=== PATIENT | male | born 1955 | race Caucasian/White ===

== ENCOUNTER 2016-10-04 14:41 | Emergency (ER) | payer BC ==
[~2016-10-04] VITALS: Ht 172.7 cm; Wt 81.7 kg
[~2016-10-04 14:41] MED LIST: ALBU1AER9; DLN100 PO; DLN30 PO; LRT5 PO; PRLSR20 PO
[2016-10-04 14:43] VITALS: Ht 172.7 cm; Wt 81.7 kg
[2016-10-04] MEDS ORDERED: SODIUM CHLORIDE 0.9% 1000ML 250 ML IV STA (15:07)
[2016-10-04] MEDS ORDERED: SODIUM CHLORIDE 0.9% 1000ML 1,000 ML IV STA (15:07)
--- NOTE | 2016-10-04 15:12 | EMERGENCY ROOM VISIT NOTE ---
History Report prepared by Lizeth: Rene Claudio Under the Supervision of: Dr. Davy Benoit M.D. First contact with patient: 14:56 Chief Complaint: NECK PAIN Stated Complaint: PAIN IN LEFT SIDE OF NECK History of Present Illness The patient is a 60 year old male who presents to the Emergency Room with complaints of waxing & waning pain on the left side of the neck for the past two days. The pain was worse yesterday and last night than today. The pain is exacerbated when he pushes on his neck. The patient states that the pain is "where the artery is." He was seen at a [facility] urgent care clinic, where he was referred to the ED. The patient notes that he has had chest discomfort for several weeks. He denies visual changes, trouble speaking or swallowing, tooth aches, headaches, fevers, rhinorrhea, shortness of breath, nausea, vomiting, weakness, numbness, pain or swelling of the legs. He has not been sick recently. The patient takes Omeprazole for GERD. He also takes Dilantin for a history of seizures and notes that he has not had a seizure for 12 years. The patient is not a smoker. 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 Source of History: patient, spouse/significant other Onset: two days ago Position: neck Timing: waxes/wanes Modifying Factors (Worsening): other (touch) Associated Symptoms: + chest pain, No SOB, No fevers, No headache, No nausea , No numbness, No vomiting, No weakness Review of Systems See HPI for pertinent positives & negatives. A total of 10 systems reviewed and were otherwise negative. Past Medical & Surgical Medical Problems: (1) GERD (gastroesophageal reflux disease) (2) Seizure disorder Old medical records were reviewed. Nurse's notes were reviewed and I agree with. Family History FH: heart disease FHx: gallbladder disease Hypertension Social History Smoking Status: Never Smoker Alcohol Use: none Occupation Status: employed Current/Historical Medications Scheduled Cyanocobalamin (B12), 1 TAB PO DAILY Folic Acid (Folvite), 1 TAB PO DAILY Omeprazole (Prilosec), 20 MG PO DAILY Phenytoin Sodium Extended (Dilantin), 200 MG PO DAILY Phenytoin Sodium Extended (Dilantin), 250 MG PO HS Allergies Coded Allergies: Morphine (Unverified Allergy, Unknown, IV, RED STREAKS UP ARM, 10/04/16) Physical Exam Vital Signs Date Time Temp Pulse Resp B/P Pulse Ox O2 Delivery O2 Flow Rate FiO2 10/04/16 19:04 36.8 78 18 126/82 98 10/04/16 18:35 78 18 126/82 98 Room Air 10/04/16 15:39 68 10/04/16 14:43 36.8 96 18 145/89 94 Room Air Physical Exam General: Non ill-appearing middle aged male in no acute distress, speaking and swallowing without difficulty. HEENT: Normal cephalic atraumatic. Pupils are equal round and reactive to light. Sclerae anicteric. Extraocular movements are intact. Oropharynx is pink with moist mucous membranes, floor of mouth is soft without evidence of abscess. No swelling of the mouth lips or tongue. Neck: Supple with a midline trachea. No meningeal signs or stiffness, no JVD or bruits. No Stridor. tenderness and swelling in the left anterior neck area in the area of the carotid on the left. No definite mass. No redness or warmth. Chest: Clear to auscultation bilaterally. No wheezes or rhonchi. No increased work of breathing. Heart: regular rate and rhythm. Abdomen: Soft nontender, nondistended without rebound guarding or rigidity. Extremities: No cyanosis clubbing or edema. No calf tenderness or assymetry Spine/Back. Non tender to palpation. No CVA tenderness Skin: Good turgor without rashes. Neurologic exam: Cranial nerves two through 12 are intact. Motor and sensation are intact and symmetrical throughout. Medical Decision & Procedures ER Provider Diagnostic Interpretation: Radiology results as stated below per my review and radiologist interpretation: SINGLE VIEW CHEST CLINICAL HISTORY: Atypical chest pain. FINDINGS: An AP, portable, upright chest radiograph is obtained. No prior studies are available for comparison at the time of dictation. The examination is degraded by portable technique and patient rotation. The cardiomediastinal silhouette is unremarkable. Nonspecific interstitial thickening is noted. The lungs and pleural spaces are clear. No pneumothorax is seen. The bony thorax is grossly intact. IMPRESSION: No acute cardiopulmonary abnormality. Electronically signed by: Jace Madison M.D. 10/04/2016 3:28 PM Dictated Date/Time: 10/04/2016 3:[address] SCAN OF THE NECK WITH IV CONTRAST CLINICAL HISTORY: Left neck pain. Neck mass. COMPARISON STUDY: No priors. TECHNIQUE: Following the IV administration of 115 cc of Optiray 320, CT scan of the soft tissues of the neck was performed from the skull base to the upper chest. Images are reviewed in the axial, sagittal, and coronal planes. IV contrast was administered without complication. CT DOSE: 423.94 mGy.cm FINDINGS: Pharynx: The nasopharynx, oropharynx, and laryngeal pharynx are normal in appearance. The pharyngeal airway is widely patent. There is no evidence of mass lesion. The vocal cords are symmetric. The parapharyngeal fat is well maintained. The prevertebral/retropharyngeal soft tissues are within normal limits. The epiglottis is normal. Lymphadenopathy: No cervical lymphadenopathy is seen Thyroid: Normal in size and attenuation. Salivary glands: The parotid and submandibular glands are within normal limits. Brain parenchyma: The visualized brain parenchyma at the skull base is normal in appearance. Vascular structures: The internal carotid arteries and jugular veins are widely patent bilaterally. The cutaneous marker at the site of interest is located over the left carotid bulb. There is mild intimal thickening seen within the distal left common carotid artery and involving the proximal left internal carotid artery. There is mild haziness in the surrounding fat. Similar but milder findings are noted in the right carotid bulb. Skeletal structures: Imaged portions of the calvarium at the skull base are within normal limits. The cervical spine appears intact. Mild multilevel cervical spondylosis is observed. Sinuses and mastoids: Findings suggest previous paranasal sinus surgery. Mild mucosal thickening is seen within the maxillary antra and the ethmoid sinuses. The mastoid air cells are well pneumatized. Lung apices: Visualized apical lung parenchyma is clear. IMPRESSION: 1. The cutaneous marker at the site of interest overlies the left carotid bulb. There is mild intimal thickening seen within the left carotid vessels at this level with mild haziness in the surrounding fat. The appearance is nonspecific but suggest a mild arteritis. Clinical correlation will be required. 2. Similar but milder findings are noted in the region of the right carotid bulb. 3. The carotid vessels are widely patent. 4. There is no mass, fluid collection, or cervical lymphadenopathy identified. Findings were discussed with Dr. Ramos in the emergency department at the time of interpretation. Electronically signed by: Jace Madison M.D. 10/04/2016 5:56 PM Dictated Date/Time: 10/04/2016 5:40 PM Laboratory Results 10/04/16 16:00 Red Blood Count 4.60, Mean Corpuscular Volume 89.3, Mean Corpuscular Hemoglobin 32.0, Mean Corpuscular Hemoglobin Concent 35.8, Mean Platelet Volume 9.3, Neutrophils (%) (Auto) 61.3, Lymphocytes (%) (Auto) 25.3, Monocytes (%) (Auto) 9.7, Eosinophils (%) (Auto) 2.9, Basophils (%) (Auto) 0.5, Neutrophils # (Auto) 3.99, Lymphocytes # (Auto) 1.65, Monocytes # (Auto) 0.63, Eosinophils # (Auto) 0.19, Basophils # (Auto) 0.03 10/04/16 16:00 Test 10/04/16 16:00 10/04/16 16:05 White Blood Count 6.51 K/uL (4.8-10.8) Red Blood Count 4.60 M/uL (4.7-6.1) Hemoglobin 14.7 g/dL (14.0-18.0) Hematocrit 41.1 % (42-52) Mean Corpuscular Volume 89.3 fL (80-100) Mean Corpuscular Hemoglobin 32.0 pg (25-34) Mean Corpuscular Hemoglobin Concent 35.8 g/dl (32-36) Platelet Count 152 K/uL (130-400) Mean Platelet Volume 9.3 fL (7.4-10.4) Neutrophils (%) (Auto) 61.3 % Lymphocytes (%) (Auto) 25.3 % Monocytes (%) (Auto) 9.7 % Eosinophils (%) (Auto) 2.9 % Basophils (%) (Auto) 0.5 % Neutrophils # (Auto) 3.99 K/uL (1.4-6.5) Lymphocytes # (Auto) 1.65 K/uL (1.2-3.4) Monocytes # (Auto) 0.63 K/uL (0.11-0.59) Eosinophils # (Auto) 0.19 K/uL (0-0.5) Basophils # (Auto) 0.03 K/uL (0-0.2) RDW Standard Deviation 43.4 fL (36.4-46.3) RDW Coefficient of Variation 13.2 % (11.5-14.5) Immature Granulocyte % (Auto) 0.3 % Immature Granulocyte # (Auto) 0.02 K/uL (0.00-0.02) Erythrocyte Sedimentation Rate 2 mm/hr (0-14) Anion Gap 10.0 mmol/L (3-11) Est Creatinine Clear Calc Drug Dose 84.3 ml/min Estimated GFR () 107.0 Estimated GFR (Non- 92.3 BUN/Creatinine Ratio 21.7 (10-20) Calcium Level 8.2 mg/dl (8.5-10.1) Total Bilirubin 0.1 mg/dl (0.2-1) Direct Bilirubin < 0.1 mg/dl (0-0.2) Aspartate Amino Transf (AST/SGOT) 15 U/L (15-37) Alanine Aminotransferase (ALT/SGPT) 24 U/L (12-78) Alkaline Phosphatase 121 U/L (45-117) C-Reactive Protein < 0.29 mg/dl (0-0.29) Total Protein 6.8 gm/dl (6.4-8.2) Albumin 3.6 gm/dl (3.4-5.0) Lipase 83 U/L (73-393) Bedside Troponin I 0.000 ng/ml (0-0.045) Laboratory studies as stated above per my review. Medications Administered Medications (Trade) Dose Ordered Sig/Wade Route Start Time Stop Time Status Last Admin Dose Admin Sodium Chloride 250 ml @ 999 mls/hr Q16M STAT IV 10/04/16 15:07 10/04/16 15:22 DC 10/04/16 16:07 999 MLS/HR Sodium Chloride (Nss 1000ml) 1,000 ml @ 100 mls/hr Q10H STAT IV 10/04/16 15:07 10/04/16 19:20 DC 10/04/16 16:08 100 MLS/HR ECG Indication: other (left neck pain) Rate (beats per minute): 65 Rhythm: normal sinus Findings: RBBB, no acute ischemic change, no ectopy Comparison ECG Date: no prior available ED Course 1500: Past medical records reviewed. The patient was evaluated in room B7, and a complete history and physical examination were performed. 1507: NSS 1000 ml @ 100 mls/hr, NSS 250 ml @ 999 mls/hr. 1625: The patient is comfortable. He will go to CT scan. 181: Spoke with Dr. Calvo, Vascular Surgeon. He recommended follow up with Rheumatology. 183: spoke with the advertising production manager Beauty Director, who does not believe that the patient has vasculitis as his sed rate is normal. 1850: Reassessed the patient. Discussed the findings with him. He verbalized understanding and agreement of the treatment plan. The patient is ready for discharge. Medical Decision Differential diagnosis includes lymphadenopathy, infection, vascular pathology, malignancy. This patient comes in as described above. He had left anterior neck pain. It' s the area chronic near the carotid. He has a normal neurologic exam and has no other symptoms. He's had no injury. There is no respiratory symptoms. He is no evidence of airway compromise. No trouble speaking or swallowing. No chest pain or shortness of breath. IV access established and multiple blood testing was obtained. He has no white count or fever to suggest infection. He has negative inflammatory markers including a normal sedimentation rate and CRP. He has no electrolyte and metabolic abnormality. He has nothing to suggest an acute coronary syndrome or arrhythmia. I did a CT of his neck there is no acute abnormality seen with exception of questionable nonspecific changes around the left carotid. It could represent a mild arteritis according to the radiologist who I talked to. I did talk to Dr. Calvo, the vascular surgeon on- call, and he did not feel is any other acute treatment needed at this point. I also talked the value stream manager who felt that this was unlikely arteritis given the fact that the sedimentation rate was normal. The patient looks well. I will have him use anti-inflammatories. I encouraged close follow-up with his doctor Thursday for recheck or return to the week ER over the weekend if: Increasing pain, swelling, redness, warmth, numbness, weakness, chest pain, shortness of breath, any new problems or concerns. The patient and his , who I talked to at length as well, were both happy with plan and he was discharged to home. Consults Time Called: 1809 Consulting Physician: Dr. Calvo, Vascular Surgeon. Returned Call: [phone]: Spoke with Dr. Calvo, Vascular Surgeon. He recommended follow up with Rheumatology. Additional Consults: Time Called: 1819 Consulted Physician: Beauty Director Returned Call: [phone] Additional Comments: 1829: spoke with the advertising production manager Beauty Director, who does not believe that the patient has vasculitis as his sed rate is normal. Impression Primary Impression: Carotidynia Additional Impression: Neck pain, acute Scribe Attestation The scribe's documentation has been prepared under my direction and personally reviewed by me in its entirety. I confirm that the note above accurately reflects all work, treatment, procedures, and medical decision making performed by me. Departure Information Dispostion Home / Self-Care Referrals Howie Hendricks D.O. (PCP) Forms HOME CARE DOCUMENTATION FORM, IMPORTANT VISIT INFORMATION, WORK / SCHOOL INSTRUCTIONS Patient Instructions My [facility] Additional Instructions Rest. Drink plenty of fluids. For pain, Use ibuprofen 400 mg every 6 hours, take with food Return if: Increasing pain, fever or chills, worsening symptoms, numbness or weakness, any new problems or concerns. Problem Qualifiers
[2016-10-04] MEDS ORDERED: FOLI1TAB7 PO (15:14)
[2016-10-04] MEDS ORDERED: PHEN-310 PO ×2 (15:14→15:18)
[2016-10-04] MEDS ORDERED: CYAN100073 PO (15:14)
[2016-10-04] MEDS ORDERED: OMEP20CA59 PO (15:14)
[2016-10-04] MEDS ORDERED: OPTIRAY 320 IV PRN (15:15)
--- NOTE | 2016-10-04 15:29 | DIAGNOSTIC IMAGING REPORT ---
SINGLE VIEW CHEST CLINICAL HISTORY: Atypical chest pain. FINDINGS: An AP, portable, upright chest radiograph is obtained. No prior studies are available for comparison at the time of dictation. The examination is degraded by portable technique and patient rotation. The cardiomediastinal silhouette is unremarkable. Nonspecific interstitial thickening is noted. The lungs and pleural spaces are clear. No pneumothorax is seen. The bony thorax is grossly intact. IMPRESSION: No acute cardiopulmonary abnormality. Electronically signed by: Jace Madison M.D. 10/04/2016 3:28 PM Dictated Date/Time: 10/04/2016 3:27 PM
[2016-10-04 16:06] LABS: BASO % 0.5 %; BASO ABS # 0.03 K/uL (0-0.2); COMPLETE YES; EOS % 2.9 %; HEMATOCRIT 41.1 % (42-52); IG% 0.3 %; LYMPH % 25.3 %; LYMPH ABS # 1.65 K/uL (1.2-3.4); MEAN CELL VOLUME 89.3 fL (80-100); MEAN CORPUSCULAR HGB CONC 35.8 g/dl (32-36); MEAN PLATELET VOLUME 9.3 fL (7.4-10.4); MONO % 9.7 %; NEUT % 61.3 %; PLATELET COUNT 152 K/uL (130-400); WHITE BLOOD COUNT 6.51 K/uL (4.8-10.8)
[2016-10-04 16:23] LABS: ALT/SGPT 24 U/L (12-78); BLOOD UREA NITROGEN 19 mg/dl (7-18); BUN/CREATININE RATIO 21.7 (10-20); CALCIUM 8.2 mg/dl (8.5-10.1); CARBON DIOXIDE 25 mmol/L (21-32); CHLORIDE 108 mmol/L (98-107); CREATININE 0.89 mg/dl (0.60-1.40); GLUCOSE 98 mg/dl (70-99); POTASSIUM 3.6 mmol/L (3.5-5.1); SODIUM 143 mmol/L (136-145)
[2016-10-04 16:26] LABS: ALKALINE PHOSPHATASE 121 U/L (45-117); AST/SGOT 15 U/L (15-37)
--- NOTE | 2016-10-04 17:57 | DIAGNOSTIC IMAGING REPORT ---
CT SCAN OF THE NECK WITH IV CONTRAST CLINICAL HISTORY: Left neck pain. Neck mass. COMPARISON STUDY: No priors. TECHNIQUE: Following the IV administration of 115 cc of Optiray 320, CT scan of the soft tissues of the neck was performed from the skull base to the upper chest. Images are reviewed in the axial, sagittal, and coronal planes. IV contrast was administered without complication. CT DOSE: 423.94 mGy.cm FINDINGS: Pharynx: The nasopharynx, oropharynx, and laryngeal pharynx are normal in appearance. The pharyngeal airway is widely patent. There is no evidence of mass lesion. The vocal cords are symmetric. The parapharyngeal fat is well maintained. The prevertebral/retropharyngeal soft tissues are within normal limits. The epiglottis is normal. Lymphadenopathy: No cervical lymphadenopathy is seen Thyroid: Normal in size and attenuation. Salivary glands: The parotid and submandibular glands are within normal limits. Brain parenchyma: The visualized brain parenchyma at the skull base is normal in appearance. Vascular structures: The internal carotid arteries and jugular veins are widely patent bilaterally. The cutaneous marker at the site of interest is located over the left carotid bulb. There is mild intimal thickening seen within the distal left common carotid artery and involving the proximal left internal carotid artery. There is mild haziness in the surrounding fat. Similar but milder findings are noted in the right carotid bulb. Skeletal structures: Imaged portions of the calvarium at the skull base are within normal limits. The cervical spine appears intact. Mild multilevel cervical spondylosis is observed. Sinuses and mastoids: Findings suggest previous paranasal sinus surgery. Mild mucosal thickening is seen within the maxillary antra and the ethmoid sinuses. The mastoid air cells are well pneumatized. Lung apices: Visualized apical lung parenchyma is clear. IMPRESSION: 1. The cutaneous marker at the site of interest overlies the left carotid bulb. There is mild intimal thickening seen within the left carotid vessels at this level with mild haziness in the surrounding fat. The appearance is nonspecific but suggest a mild arteritis. Clinical correlation will be required. 2. Similar but milder findings are noted in the region of the right carotid bulb. 3. The carotid vessels are widely patent. 4. There is no mass, fluid collection, or cervical lymphadenopathy identified. Findings were discussed with Dr. Ramos in the emergency department at the time of interpretation. Electronically signed by: Jace Madison M.D. 10/04/2016 5:56 PM Dictated Date/Time: 10/04/2016 5:40 PM
[2016-10-04 18:11] LABS: C-REACTIVE PROTEIN < 0.29 mg/dl (0-0.29)
[2016-10-04 19:04] VITALS: BP 126/82; PULSE 78; TEMP 36.8; O2SAT 98
[2016-12-30] MEDS ORDERED: BENZ1CAP90 PO (12:36)
[2016-12-30] MEDS ORDERED: PRED10TA PO (12:36)
[2016-12-30] MEDS ORDERED: LEVO750T23 PO (12:36)
[2016-12-30] MEDS ORDERED: VNTHFA/IN INH (12:36)
== END 2016-10-04 19:05 | disposition home or self-care (01) ==
LOC: C.EDB 14:41
DX: G90.01 Carotid sinus syncope (principal); M54.2 Cervicalgia; K21.9 Gastro-esophageal reflux disease without esophagitis; G40.909 Epilepsy, unspecified, not intractable, without status epilepticus; Z79.899 Other long term (current) drug therapy

== ENCOUNTER 2016-12-24 21:44 | Inpatient (IN) | payer BC ==
[~2016-12-24] VITALS: Ht 172.7 cm; Wt 79.2 kg
[~2016-12-24 21:44] MED LIST changes: -ALBU1AER9; +CYAN100073 PO; -DLN100 PO; -DLN30 PO; +FOLI1TAB7 PO; -LRT5 PO; +OMEP20CA59 PO; +PHEN-310 PO; -PRLSR20 PO
[2016-12-24] MEDS ORDERED: SODIUM CHLORIDE 0.9% 1000ML 1,000 ML IV STA ×2 (21:55)
[2016-12-24] MEDS ORDERED: ACETAMINOPHEN 500 MG TAB PO STA (21:55)
[2016-12-24] MEDS ORDERED: ALBUT/IPRATROP 3MG/0.5MG NEB 3 ML VIAL INH STA (22:03)
[2016-12-24 22:23] LABS: BASO % 0.2 %; BASO ABS # 0.01 K/uL (0-0.2); COMPLETE YES; EOS % 1.2 %; HEMATOCRIT 41.5 % (42-52); IG% 0.2 %; LYMPH % 11.6 %; MEAN CELL VOLUME 89.6 fL (80-100); MEAN CORPUSCULAR HEMOGLOBIN 31.3 pg (25-34); MEAN CORPUSCULAR HGB CONC 34.9 g/dl (32-36); MEAN PLATELET VOLUME 9.6 fL (7.4-10.4); MONO % 9.9 %; NEUT % 76.9 %; PLATELET COUNT 137 K/uL (130-400); RED BLOOD COUNT 4.63 M/uL (4.7-6.1); WHITE BLOOD COUNT 6.04 K/uL (4.8-10.8)
--- NOTE | 2016-12-24 22:27 | DIAGNOSTIC IMAGING REPORT ---
CHEST ONE VIEW PORTABLE CLINICAL HISTORY: Weakness. Fever. COMPARISON STUDY: Chest radiograph October 04, 2016. FINDINGS: There is no pneumothorax or pleural effusion. Lung volumes are diminished. Bibasilar opacities are present. Cardiac size is normal. There is no evidence of pulmonary edema. IMPRESSION: Bibasilar opacities which statistically reflect atelectasis on this hypoventilatory study. Consolidation is considered less likely. Electronically signed by: Reji Upton M.D. 12/24/2016 10:25 PM Dictated Date/Time: 12/24/2016 10:25 PM
[2016-12-24 22:33] LABS: PARTIAL THROMBOPLASTIN RATIO 1.1; PROTHROMBIN TIME (PATIENT) 10.5 SECONDS (9.0-12.0)
[2016-12-24 22:47] LABS: URINE APPEARANCE CLEAR (CLEAR); URINE BILIRUBIN NEG (NEG); URINE COLOR DK YELLOW; URINE NITRITE NEG (NEG); URINE PH 6.5 (4.5-7.5); URINE SPECIFIC GRAVITY 1.017 (1.000-1.030); UROBILINOGEN NEG (NEG)
[2016-12-24 22:47] LABS: CALCIUM 8.4 mg/dl (8.5-10.1)
[2016-12-24 22:48] LABS: ALT/SGPT 67 U/L (12-78); BLOOD UREA NITROGEN 11 mg/dl (7-18); BUN/CREATININE RATIO 11.8 (10-20); CARBON DIOXIDE 25 mmol/L (21-32); CHLORIDE 105 mmol/L (98-107); CREATININE 0.95 mg/dl (0.60-1.40); GLUCOSE 132 mg/dl (70-99); POTASSIUM 3.4 mmol/L (3.5-5.1); SODIUM 139 mmol/L (136-145)
[2016-12-24 22:49] LABS: MANUAL MICROSCOPIC REQUIRED? NO; REVIEW REQ? NO
[2016-12-24 22:59] LABS: ALKALINE PHOSPHATASE 115 U/L (45-117); AST/SGOT 74 U/L (15-37)
[2016-12-24] MEDS ORDERED: OSELTAMIVIR PHOSPHATE 75 MG CAP PO STA (23:54)
[2016-12-25] VITALS (7 sets, daily range): BP systolic 103–117; BP diastolic 62–67; PULSE 86–99; TEMP 36.9–37.2; O2SAT 90–98; Ht 172.7 cm; Wt 79.2 kg
[2016-12-25] MEDS ORDERED: LEVAQUIN 750MG / 150ML D5W IV ONE (00:15)
[2016-12-25] MEDS ORDERED: ALBUT/IPRATROP 3MG/0.5MG NEB 3 ML VIAL INH STA (00:19)
--- NOTE | 2016-12-25 00:57 | EMERGENCY ROOM VISIT NOTE ---
History Report prepared by Lizeth: Ene Khan Under the Supervision of: Dr. Liu Lopez M.D. First contact with patient: 21:52 Chief Complaint: FEVER Stated Complaint: FEVER, VERY COLD, LABORED BREATHING SINCE 12/22 History of Present Illness The patient is a 61 year old male who presents to the Emergency Room with complaints of worsening fever beginning 2 days ago. He currently rates his discomfort as an 8/10 in severity. The patient reports he had a sinus infection two weeks ago prior to his cruise that was treated with antibiotics. The patient notes that he noticed flu-like symptoms around midnight 2 days ago. The patient complains of swelling, pain, and erythema on the left side of his face, describing his discomfort as a burning pain. The patient states he feels a stinging in his left eye. The patient still notes discomfort to the left side of his face. The patient also complains of a cough and shortness of breath. He reports he can breathe air in but has difficulty in getting air out. The patient states that symptoms exacerbate with movement. He reports that he has been taking Mucinex, Tylenol and Ibuprofen without relief of his symptoms. Source of History: patient Onset: two days ago Position: other (global) Symptom Intensity: 8/10 Quality: other (fever) Timing: worsening Associated Symptoms: + SOB, + cough Note: Associated Symtpoms: Pain swelling erythema on left side of face, flu like symptoms Review of Systems See HPI for pertinent positives and negatives. A total of ten systems were reviewed and were otherwise negative. Past Medical & Surgical Medical Problems: (1) GERD (gastroesophageal reflux disease) (2) Influenza B (3) Pneumonia (4) Seizure disorder Family History FH: heart disease FHx: gallbladder disease Hypertension Social History Smoking Status: Never Smoker Alcohol Use: none Occupation Status: employed Current/Historical Medications Scheduled Cyanocobalamin (B12), 1 TAB PO DAILY Folic Acid (Folvite), 1 TAB PO DAILY Omeprazole (Prilosec), 20 MG PO DAILY Phenytoin Sodium Extended (Dilantin), 200 MG PO BID Allergies Coded Allergies: Morphine (Unverified Allergy, Unknown, IV, RED STREAKS UP ARM, 12/24/16) Physical Exam Vital Signs Date Time Temp Pulse Resp B/P Pulse Ox O2 Delivery O2 Flow Rate FiO2 12/24/16 23:25 107 16 126/78 96 Nasal Cannula 2.0 12/24/16 22:32 108 12/24/16 22:28 94 Room Air 12/24/16 21:47 38.8 120 28 122/80 94 Room Air Physical Exam GENERAL: Awake, alert, mildly ill and very uncomfortable appearing, no distress HEAD: Normocephalic, atraumatic. No edema. EYES: Normal conjunctiva. Sclera non-icteric. EARS: Right TM normal. Left TM normal. NOSE: Mild congestion. OROPHARYNX: Lips, tongue, and mucosa unremarkable. No erythema or exudate. NECK: Supple. No nuchal rigidity. FROM. No adenopathy. Negative jolt accentuation test. RESPIRATORY: CTA bilaterally. No wheezes rales or rhonchi. CARDIAC: Borderline tachycardic rate, normal rhythm. ABDOMEN: Soft, non distended. No tenderness to palpation. NEURO: Normal sensorium. SKIN: No rash or jaundice noted Medical Decision & Procedures ER Provider Diagnostic Interpretation: X-ray: Per my interpretation, radiologist review. CHEST ONE VIEW PORTABLE CLINICAL HISTORY: Weakness. Fever. COMPARISON STUDY: Chest radiograph October 04, 2016. FINDINGS: There is no pneumothorax or pleural effusion. Lung volumes are diminished. Bibasilar opacities are present. Cardiac size is normal. There is no evidence of pulmonary edema. IMPRESSION: Bibasilar opacities which statistically reflect atelectasis on this hypoventilatory study. Consolidation is considered less likely. Electronically signed by: Reji Upton M.D. 12/24/2016 10:25 PM Dictated Date/Time: 12/24/2016 10:25 PM Laboratory Results 12/24/16 22:00 Red Blood Count 4.63, Mean Corpuscular Volume 89.6, Mean Corpuscular Hemoglobin 31.3, Mean Corpuscular Hemoglobin Concent 34.9, Mean Platelet Volume 9.6, Neutrophils (%) (Auto) 76.9, Lymphocytes (%) (Auto) 11.6, Monocytes (%) (Auto) 9.9, Eosinophils (%) (Auto) 1.2, Basophils (%) (Auto) 0.2, Neutrophils # (Auto) 4.65, Lymphocytes # (Auto) 0.70, Monocytes # (Auto) 0.60, Eosinophils # (Auto) 0.07, Basophils # (Auto) 0.01 12/24/16 22:00 Test 12/24/16 22:00 12/24/16 22:16 12/24/16 22:18 12/24/16 22:30 White Blood Count 6.04 K/uL (4.8-10.8) Red Blood Count 4.63 M/uL (4.7-6.1) Hemoglobin 14.5 g/dL (14.0-18.0) Hematocrit 41.5 % (42-52) Mean Corpuscular Volume 89.6 fL (80-100) Mean Corpuscular Hemoglobin 31.3 pg (25-34) Mean Corpuscular Hemoglobin Concent 34.9 g/dl (32-36) Platelet Count 137 K/uL (130-400) Mean Platelet Volume 9.6 fL (7.4-10.4) Neutrophils (%) (Auto) 76.9 % Lymphocytes (%) (Auto) 11.6 % Monocytes (%) (Auto) 9.9 % Eosinophils (%) (Auto) 1.2 % Basophils (%) (Auto) 0.2 % Neutrophils # (Auto) 4.65 K/uL (1.4-6.5) Lymphocytes # (Auto) 0.70 K/uL (1.2-3.4) Monocytes # (Auto) 0.60 K/uL (0.11-0.59) Eosinophils # (Auto) 0.07 K/uL (0-0.5) Basophils # (Auto) 0.01 K/uL (0-0.2) RDW Standard Deviation 44.9 fL (36.4-46.3) RDW Coefficient of Variation 13.7 % (11.5-14.5) Immature Granulocyte % (Auto) 0.2 % Immature Granulocyte # (Auto) 0.01 K/uL (0.00-0.02) Prothrombin Time 10.5 SECONDS (9.0-12.0) Prothromb Time International Ratio 1.0 (0.9-1.1) Activated Partial Thromboplast Time 29.5 SECONDS (21.0-31.0) Partial Thromboplastin Ratio 1.1 Anion Gap 9.0 mmol/L (3-11) Est Creatinine Clear Calc Drug Dose 78.0 ml/min Estimated GFR () 99.0 Estimated GFR (Non- 85.4 BUN/Creatinine Ratio 11.8 (10-20) Calcium Level 8.4 mg/dl (8.5-10.1) Magnesium Level 2.0 mg/dl (1.8-2.4) Total Bilirubin 0.6 mg/dl (0.2-1) Direct Bilirubin 0.3 mg/dl (0-0.2) Aspartate Amino Transf (AST/SGOT) 74 U/L (15-37) Alanine Aminotransferase (ALT/SGPT) 67 U/L (12-78) Alkaline Phosphatase 115 U/L (45-117) Total Protein 6.9 gm/dl (6.4-8.2) Albumin 3.7 gm/dl (3.4-5.0) Lipase 166 U/L (73-393) Thyroid Stimulating Hormone (TSH) 0.980 uIu/ml (0.300-4.500) Bedside Lactic Acid Venous 1.23 mmol/L (0.90-1.70) Urine Color DK YELLOW Urine Appearance CLEAR (CLEAR) Urine pH 6.5 (4.5-7.5) Urine Specific [place] 1.017 (1.000-1.030) Urine Protein NEG (NEG) Urine Glucose (UA) NEG (NEG) Urine Ketones 1+ (NEG) Urine Occult Blood NEG (NEG) Urine Nitrite NEG (NEG) Urine Bilirubin NEG (NEG) Urine Urobilinogen NEG (NEG) Urine Leukocyte Esterase NEG (NEG) Influenza Type A Antigen Neg for Influ A (NEG) Influenza Type B Antigen POS for Influ B (NEG) Test 12/24/16 23:54 Troponin I < 0.015 ng/ml (0-0.045) Laboratory results reviewed by me Medications Administered Medications (Trade) Dose Ordered Sig/Wade Route Start Time Stop Time Status Last Admin Dose Admin Sodium Chloride 1,000 ml @ 125 mls/hr Q8H STAT IV 12/24/16 21:55 12/25/16 05:54 12/24/16 21:55 125 MLS/HR Sodium Chloride (Nss 1000ml) 1,000 ml @ 999 mls/hr Q1H1M STAT IV 12/24/16 21:55 12/24/16 22:55 DC 12/24/16 22:33 999 MLS/HR Acetaminophen (Tylenol Tab) 1,000 mg NOW STAT PO 12/24/16 21:55 12/24/16 21:56 DC 12/24/16 22:43 1,000 MG Albuterol/ Ipratropium (Duoneb) 3 ml NOW STAT INH 12/24/16 22:03 12/24/16 22:04 DC 12/24/16 22:43 3 ML Oseltamivir Phosphate (Tamiflu Cap) 75 mg NOW STAT PO 12/24/16 23:54 12/24/16 23:55 DC 12/25/16 00:06 75 MG ECG Indication: SOB/dyspnea Rate (beats per minute): 102 Rhythm: sinus tachycardia Findings: nonspecific-ST abn, RBBB, no ectopy ED Course 2154: Ordered Tylenol Tab 1000 mg PO, Sodium chloride 1000 ml @ 999 mls/hr IV, Sodium Chloride 1000 ml @ 125 mls/hr Iv. 2199: The patient was evaluated in room B3B. A complete history and physical exam was performed. 2202: Ordered DuoNeb 3ml INH. 2354: Patient reassessed and still feeling ill. Discussed further treatment in the hospital. Ordering Levaquin. 0015: Paged Hospitalist 0020: Discussed with Dr. Sanchez. Medical Decision Triage Nursing notes reviewed. The patient's presentation and history were concerning for flulike symptoms. Etiologies such as viral syndrome, otitis, pharyngitis, pneumonia, urinary tract infection, sepsis, bacteremia, meningitis, as well as others were entertained. The patient was evaluated. He had tachycardia, increased work of breathing, and fever. There was concerns about sepsis as well as pneumonia. DuoNeb was provided. The patient was given Tylenol. IV fluids were initiated. His CBC and chemistry panel were unremarkable. Cardiac markers are negative. ECG is consistent with tachycardia. Nonspecific ST changes noted. The patient did feel somewhat better after the nebulizer and Tylenol. He was still mildly tachycardic. Chest x-ray raise some concern about pneumonia as he has a productive cough of yellow sputum. The patient had a flu test performed and this was positive for influenza B. The patient was given a second neb treatment. On reassessment he was still having increased work of breathing and felt poorly. I discuss further evaluation and management in the hospital or going home. The patient felt comfortable staying in the hospital. He was given a dose of IV Levaquin consultation was made with [facility]. The patient was evaluated for further treatment. The chart was completed utilizing [employer] Speech voice recognition software. Grammatical errors, random word insertions, pronoun errors, and incomplete sentences are an occasional consequence of this system due to software limitations, ambient noise, and hardware issues. Any formal questions or concerns about the content, text, or information contained within the body of this dictation should be directly addressed to the physician for clarification. Consults Time Called: 14 Consulting Physician: Dr. Sanchez Returned Call: 002 Impression Primary Impression: Influenza Additional Impression: Pneumonia Scribe Attestation The scribe's documentation has been prepared under my direction and personally reviewed by me in its entirety. I confirm that the note above accurately reflects all work, treatment, procedures, and medical decision making performed by me. Departure Information Dispostion Being Evaluated By Hospitalist Referrals Howie Hendricks D.O. (PCP) Patient Instructions My [facility] Problem Qualifiers
[2016-12-25] MEDS ORDERED: ONDANSETRON INJ 2 MG/ML 2 ML VIAL IV PRN (01:00)
[2016-12-25] MEDS ORDERED: ALBUTEROL 0.083% NEBU SOLN 3 ML VIAL INH PRN (01:00)
[2016-12-25] MEDS ORDERED: POTASSIUM CHLORIDE 10 MEQ TABCR PO STA (01:16)
--- NOTE | 2016-12-25 01:39 | HISTORY & PHYSICAL EXAMINATION ---
DATE OF ADMISSION: 12/24/2016 PRIMARY CARE PHYSICIAN: Dr Hendricks CHIEF COMPLAINT: Cough with fever and weakness since Thursday night. HISTORY OF PRESENT COMPLAINT: He is a 61-year-old male with significant past medical history of epilepsy, esophageal reflux, asthma in remission and also chronic back pain, apparently has been complaining of cough with weakness and fever since Thursday midnight. He woke up at midnight Thursday with cough. At that time, he was feeling warm and had some cough without any production of any phlegm. He went to work but the condition has been getting worse. Today, he was really very tired, very warm and sweaty at times, more cough and some shortness of breath. He came to Emergency Room for a checkup. He was noted to have a fever of 38.8 with a pulse rate of 120 initially and normal saturation, and he was positive for influenza B and also x-ray did show bibasilar infiltration. From that point, blood culture was taken and he was started with intravenous Levaquin and also oral Tamiflu and was advised admission. When asking question, he mentions that he has been in [place] recently and while in there, he had a bite by an insect on his left cheek and that was red and just light a dime in size. He does have some swelling in the left facial area since then, but the bite aj is gone. He denies to have any chest pain. He does not have any shortness of breath. He denies to have any swelling of the legs or any joint pain. He does not have any nausea or vomiting. He does not have any headache or any blurred vision, or any numbness or tingling in the extremities. PAST MEDICAL HISTORY: Significant for epilepsy, esophageal reflux, history of right bundle branch block, asthma in remission, and back pain secondary to lumbar intervertebral disk disease. PAST SURGICAL HISTORY: Repair of nasal septum and laparoscopic hernia repair. FAMILY HISTORY: Father had CAD and PTCA with a stent and mother had CAD as well. SOCIAL HISTORY: He is . He lives with his . He has 2 children. 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 ALLERGIES: MORPHINE. MEDICATIONS: He has been on cyanocobalamin 1000 mcg daily, folic acid 1 mg daily, omeprazole 20 mg daily, and phenytoin sodium 200 mg twice daily. REVIEW OF SYSTEMS: Other systemic review unremarkable except for those mentioned in history of present complaint. PHYSICAL EXAMINATION: GENERAL: On examination in the Emergency Room, he was not having any acute distress except some weakness and cough, nonproductive. HEENT: Unremarkable. VITAL SIGNS: Temperature 38.8, pulse was 107, blood pressure 126/78, saturation 96% on 2 liters nasal cannula. HEENT: Unremarkable. NECK: Supple. No JVD, no bruit, no lymphadenopathy. CHEST: Occasional crackles at the bases. HEART: S1, S2 regular, no murmur. ABDOMEN: Soft, benign, nontender, no organomegaly. Bowel sounds present. EXTREMITIES: Negative for any edema. MUSCULOSKELETAL: Did not show any acute arthritis. CENTRAL NERVOUS SYSTEM: Alert, awake, oriented x3. No focal sensory and/or motor deficit appreciated. LABORATORY DATA: Noted today - white count was 6.04, H\T\H 14.5/41.5, platelets was 137. Sodium 139, potassium 3.4, chloride 105, carbon dioxide 25, BUN 11, creatinine 0.95, random glucose 132, lactic acid 1.23, calcium 8.4, magnesium 2.0. Total bili 0.6, AST 74, ALT 67, alkaline phosphatase 115. Troponin less than 0.015. TSH was 0.980. Lipase 166. PT/INR unremarkable. UA examination unremarkable. IMAGING DATA: Echocardiogram is pending and chest x-ray reported as bibasilar opacities which statistically reflect atelectasis, consolidation is considered less likely. IMPRESSION AND PLAN: 1. Bibasilar pneumonia with influenza B. The patient will be admitted to medical floor. Respiratory isolation. He was started with intravenous Levaquin after taking blood culture and also oral Tamiflu. He was given nebulized bronchodilator for ongoing cough and wheezing. He will have IV fluid with potassium.Lyme titer for possible tick bite about 2-3 weeks ago. 2. Epilepsy. Has not had any seizure for the last 10 years. Continue with phenytoin. We will check phenytoin level tomorrow morning. 3. Esophageal reflux, has been on omeprazole. Continue with that 4. Asthma in remission, does not use any medications, has minimal wheezing. Will give nebulized bronchodilator while in the hospital. 5. Deep venous thrombosis prophylaxis with subcutaneous heparin. 6. Gastrointestinal prophylaxis with omeprazole. 7. Code status. He will be a full code. In my clinical judgment, the beneficiary meets criteria as per CMS for 2-midnight stay in the hospital. MTDEdi
[2016-12-25] MEDS: NSS + 20MEQ KCL 1000ML 1,000 ML IV SCH ×3 (05:00→19:55)
[2016-12-25] MEDS: HEPARIN SOD 5000 UNIT/0.5 ML CARP SQ SCH ×3 (06:00→21:58)
[2016-12-25 07:44] LABS: HEMATOCRIT 37.4 % (42-52); MEAN CELL VOLUME 90.3 fL (80-100); MEAN CORPUSCULAR HEMOGLOBIN 31.6 pg (25-34); MEAN PLATELET VOLUME 9.6 fL (7.4-10.4); PLATELET COUNT 119 K/uL (130-400); RED BLOOD COUNT 4.14 M/uL (4.7-6.1); WHITE BLOOD COUNT 3.99 K/uL (4.8-10.8)
[2016-12-25] MEDS: CYANOCOBALAMIN 500 MCG TAB (VIT B-12) PO SCH (07:51)
[2016-12-25] MEDS: PHENYTOIN SODIUM ER 100 MG CAP PO SCH ×2 (07:51→19:57)
[2016-12-25] MEDS: PANTOprazole SOD 40 MG TAB PO SCH (07:51)
[2016-12-25] MEDS: OSELTAMIVIR PHOSPHATE 75 MG CAP PO SCH ×2 (07:51→19:57)
[2016-12-25] MEDS: ACETAMINOPHEN 325 MG TAB PO PRN ×2 (08:15→12:08)
[2016-12-25 08:21] LABS: BUN/CREATININE RATIO 11.1 (10-20); CREATININE 0.87 mg/dl (0.60-1.40); POTASSIUM 3.6 mmol/L (3.5-5.1)
[2016-12-25 08:22] LABS: PHOSPHORUS 3.1 mg/dl (2.5-4.9)
[2016-12-25 09:12] LABS: CALCIUM 7.4 mg/dl (8.5-10.1)
[2016-12-25 14:53] LABS: LYME DISEASE AB IGG NEG (NEG); LYME DISEASE AB IGM NEG (NEG)
[2016-12-25] MEDS ORDERED: LORATADINE 10 MG TAB PO ONE (15:30)
[2016-12-25] MEDS: OXYMETAZOLINE HCL 0.05% NA SPR 15 ML BTL SCH ×2 (15:55→19:54)
[2016-12-25] MEDS: NAPROXEN 375 MG TAB PO PRN ×2 (15:56→22:11)
--- NOTE | 2016-12-25 19:09 | Progress Note ---
Internal Med Progress Note Date of Service: December 25, 2016. Provider Documentation: SUBJECTIVE: says he is feeling somewhat better today has some sob and cough afebrile no nausea denies chest pain complains of headache OBJECTIVE: Vital Signs-as noted below Exam: General-alert and awake and oriented x 3 ENT-normal hearing Neck-no neck masses Lungs-cta b/l no wheezing or crackles Heart-s1 and s2 heard regular rate and rhythm no murmurs Abdomen-soft bowel sounds present non tender no distension Extremities- no edema present no erythema Neuro-alert and awake oriented x 3 moves extremities Lab data as noted below. ASSESSMENT & PLAN: 1. Bibasilar pneumonia with influenza B. on Tamiflu and Levaquin improving will monitor 2. Epilepsy. On phenytoin. stable. 3. Esophageal reflux, on omeprazole. 4. Asthma in remission, does not use any medications, has minimal wheezing. Will give nebulized bronchodilator while in the hospital.Stable 5. Deep venous thrombosis prophylaxis with subcutaneous heparin. 6. Gastrointestinal prophylaxis with omeprazole. 7. Code status. He will be a full code. DISPOSITION to be determined Vital Signs: Date Time Temp Pulse Resp B/P Pulse Ox O2 Delivery O2 Flow Rate FiO2 12/25/16 16:00 Room Air 12/25/16 15:35 36.9 90 20 109/65 91 Room Air 12/25/16 14:56 87 14 98 Room Air 12/25/16 08:00 Room Air 12/25/16 07:40 37.2 99 16 117/67 90 12/25/16 01:45 37.2 95 16 103/62 95 Room Air 12/25/16 01:23 95 18 113/66 96 12/24/16 23:25 107 16 126/78 96 Nasal Cannula 2.0 12/24/16 22:32 108 12/24/16 22:28 94 Room Air 12/24/16 21:47 38.8 120 28 122/80 94 Room Air Lab Results: Results Past 24 Hours Test 12/24/16 22:00 12/24/16 22:16 12/24/16 22:18 12/24/16 22:30 Range/Units White Blood Count 6.04 4.8-10.8 K/uL Red Blood Count 4.63 4.7-6.1 M/uL Hemoglobin 14.5 14.0-18.0 g/dL Hematocrit 41.5 42-52 % Mean Corpuscular Volume 89.6 80-100 fL Mean Corpuscular Hemoglobin 31.3 25-34 pg Mean Corpuscular Hemoglobin Concent 34.9 32-36 g/dl Platelet Count 137 130-400 K/uL Mean Platelet Volume 9.6 7.4-10.4 fL Neutrophils (%) (Auto) 76.9 % Lymphocytes (%) (Auto) 11.6 % Monocytes (%) (Auto) 9.9 % Eosinophils (%) (Auto) 1.2 % Basophils (%) (Auto) 0.2 % Neutrophils # (Auto) 4.65 1.4-6.5 K/uL Lymphocytes # (Auto) 0.70 1.2-3.4 K/uL Monocytes # (Auto) 0.60 0.11-0.59 K/uL Eosinophils # (Auto) 0.07 0-0.5 K/uL Basophils # (Auto) 0.01 0-0.2 K/uL RDW Standard Deviation 44.9 36.4-46.3 fL RDW Coefficient of Variation 13.7 11.5-14.5 % Immature Granulocyte % (Auto) 0.2 % Immature Granulocyte # (Auto) 0.01 0.00-0.02 K/uL Prothrombin Time 10.5 9.0-12.0 SECONDS Prothromb Time International Ratio 1.0 0.9-1.1 Activated Partial Thromboplast Time 29.5 21.0-31.0 SECONDS Partial Thromboplastin Ratio 1.1 Sodium Level 139 136-145 mmol/L Potassium Level 3.4 3.5-5.1 mmol/L Chloride Level 105 98-107 mmol/L Carbon Dioxide Level 25 21-32 mmol/L Anion Gap 9.0 3-11 mmol/L Blood Urea Nitrogen 11 7-18 mg/dl Creatinine 0.95 0.60-1.40 mg/dl Est Creatinine Clear Calc Drug Dose 78.0 ml/min Estimated GFR () 99.0 Estimated GFR (Non- 85.4 BUN/Creatinine Ratio 11.8 10-20 Random Glucose 132 70-99 mg/dl Calcium Level 8.4 8.5-10.1 mg/dl Magnesium Level 2.0 1.8-2.4 mg/dl Total Bilirubin 0.6 0.2-1 mg/dl Direct Bilirubin 0.3 0-0.2 mg/dl Aspartate Amino Transf (AST/SGOT) 74 15-37 U/L Alanine Aminotransferase (ALT/SGPT) 67 12-78 U/L Alkaline Phosphatase 115 45-117 U/L Troponin I < 0.015 0-0.045 ng/ml Total Protein 6.9 6.4-8.2 gm/dl Albumin 3.7 3.4-5.0 gm/dl Lipase 166 73-393 U/L Thyroid Stimulating Hormone (TSH) 0.980 0.300-4.500 uIu/ml Bedside Lactic Acid Venous 1.23 0.90-1.70 mmol/L Urine Color DK YELLOW Urine Appearance CLEAR CLEAR Urine pH 6.5 4.5-7.5 Urine Specific [place] 1.017 1.000-1.030 Urine Protein NEG NEG Urine Glucose (UA) NEG NEG Urine Ketones 1+ NEG Urine Occult Blood NEG NEG Urine Nitrite NEG NEG Urine Bilirubin NEG NEG Urine Urobilinogen NEG NEG Urine Leukocyte Esterase NEG NEG Influenza Type A Antigen Neg for Influ A NEG Influenza Type B Antigen POS for Influ B NEG Test 12/24/16 23:54 12/25/16 06:53 Range/Units Troponin I < 0.015 0-0.045 ng/ml White Blood Count 3.99 4.8-10.8 K/uL Red Blood Count 4.14 4.7-6.1 M/uL Hemoglobin 13.1 14.0-18.0 g/dL Hematocrit 37.4 42-52 % Mean Corpuscular Volume 90.3 80-100 fL Mean Corpuscular Hemoglobin 31.6 25-34 pg Mean Corpuscular Hemoglobin Concent 35.0 32-36 g/dl RDW Standard Deviation 46.0 36.4-46.3 fL RDW Coefficient of Variation 13.7 11.5-14.5 % Platelet Count 119 130-400 K/uL Mean Platelet Volume 9.6 7.4-10.4 fL Sodium Level 138 136-145 mmol/L Potassium Level 3.6 3.5-5.1 mmol/L Chloride Level 105 98-107 mmol/L Carbon Dioxide Level 26 21-32 mmol/L Anion Gap 7.0 3-11 mmol/L Blood Urea Nitrogen 10 7-18 mg/dl Creatinine 0.87 0.60-1.40 mg/dl Est Creatinine Clear Calc Drug Dose 85.1 ml/min Estimated GFR () 107.2 Estimated GFR (Non- 92.5 BUN/Creatinine Ratio 11.1 10-20 Random Glucose 118 70-99 mg/dl Calcium Level 7.4 8.5-10.1 mg/dl Phosphorus Level 3.1 2.5-4.9 mg/dl Lyme Disease IgG Antibody NEG NEG Lyme Disease IgM Antibody NEG NEG Microbiology Results 12/24/16 Blood Culture, Received Pending 12/24/16 Blood Culture, Received Pending 12/24/16 Urine Culture - Preliminary, Resulted PIN-POINT GROWTH PRESENT, REINCUBATING.
[2016-12-25] MEDS ORDERED: DOCUSATE SODIUM 100 MG CAP PO PRN (20:45)
[2016-12-25] MEDS: LEVOFLOXACIN / D5W 750 MG in PREMIXED IN D5W 150 ML IV SCH (21:58)
[2016-12-25] MEDS: ALBUT/IPRATROP 3MG/0.5MG NEB 3 ML VIAL INH PRN (22:38)
[2016-12-25] MEDS ORDERED: ALUMINUM/MAGNESIUM SUSP 30 ML UDC PO ONE (23:33)
[2016-12-25] MEDS ORDERED: ALUMINUM/MAGNESIUM SUSP 30 ML UDC PO PRN (23:45)
[2016-12-25] MEDS ORDERED: ALUMINUM/MAGNESIUM SUSP 30 ML UDC PO STA (23:45)
[2016-12-26] VITALS: O2SAT 91
[2016-12-26] MEDS ORDERED: PANTOprazole INJ 40 MG in SYRINGE 0 ML IV ONE (00:30)
[2016-12-26 00:39] LABS: CKMB/CK RATIO 1.4 (0-3.0)
[2016-12-26] MEDS: NSS + 20MEQ KCL 1000ML 1,000 ML IV SCH ×3 (03:14→19:38)
[2016-12-26] MEDS: HEPARIN SOD 5000 UNIT/0.5 ML CARP SQ SCH ×3 (05:55→21:38)
[2016-12-26 06:26] LABS: CKMB/CK RATIO 0.8 (0-3.0)
[2016-12-26 07:46] VITALS: BP 95/65; PULSE 76; TEMP 37.6; O2SAT 92
[2016-12-26 08:00] VITALS: O2SAT 92
[2016-12-26] MEDS ORDERED: FLUTICASONE PROPIONATE NA SPR 16 GM BTL SCH (08:00)
[2016-12-26] MEDS: LORATADINE 10 MG TAB PO SCH (08:00)
[2016-12-26] MEDS: PHENYTOIN SODIUM ER 100 MG CAP PO SCH ×2 (08:00→19:38)
[2016-12-26] MEDS: PANTOprazole SOD 40 MG TAB PO SCH (08:01)
[2016-12-26] MEDS: OSELTAMIVIR PHOSPHATE 75 MG CAP PO SCH ×2 (08:01→19:38)
[2016-12-26] MEDS: OXYMETAZOLINE HCL 0.05% NA SPR 15 ML BTL SCH ×2 (08:02→19:39)
[2016-12-26] MEDS: ACETAMINOPHEN 325 MG TAB PO PRN ×2 (08:06→14:11)
[2016-12-26 09:25] VITALS: TEMP 36.8
[2016-12-26] MEDS: CYANOCOBALAMIN 500 MCG TAB (VIT B-12) PO SCH (09:27)
[2016-12-26] MEDS: NAPROXEN 375 MG TAB PO PRN (09:27)
[2016-12-26 13:07] LABS: CKMB/CK RATIO 1.3 (0-3.0)
[2016-12-26 15:10] VITALS: BP 105/71; PULSE 69; TEMP 36.7; O2SAT 96
--- NOTE | 2016-12-26 18:31 | Progress Note ---
Internal Med Progress Note Date of Service: December 26, 2016. Provider Documentation: SUBJECTIVE: has headaches has cough feels chest tight for short period of times afebrile nausea improved appetite better overall feeling better than yesterday OBJECTIVE: Vital Signs-as noted below Exam: General-alert and awake and oriented x 3 ENT-normal hearing Neck-no neck masses Lungs-cta b/l mild b/l wheezing present no crackles Heart-s1 and s2 heard regular rate and rhythm no murmurs Abdomen-soft bowel sounds present non tender no distension Extremities- no edema present no erythema Neuro-alert and awake oriented x 3 moves extremities Lab data as noted below. ASSESSMENT & PLAN: 1. Bibasilar pneumonia with influenza B. on Tamiflu and Levaquin improving slowly continue same will monitor. 2. Epilepsy. On phenytoin. stable. 3. Esophageal reflux, on omeprazole. 4. Asthma in remission, does not use any medications, has minimal wheezing. Will give nebulized bronchodilator while in the hospital and also iv steroid..Stable 5. Deep venous thrombosis prophylaxis with subcutaneous heparin. 6. Gastrointestinal prophylaxis with omeprazole. 7. Code status. He will be a full code. DISPOSITION to be determined Vital Signs: Date Time Temp Pulse Resp B/P Pulse Ox O2 Delivery O2 Flow Rate FiO2 12/26/16 16:00 Room Air 12/26/16 15:10 36.7 69 20 105/71 96 Room Air 12/26/16 09:25 36.8 12/26/16 08:00 92 Room Air 12/26/16 07:46 37.6 76 18 95/65 92 Room Air 12/26/16 00:00 91 Room Air 12/25/16 23:52 36.9 86 16 103/63 91 Room Air 12/25/16 22:38 90 14 91 Room Air 12/25/16 20:00 91 Room Air Lab Results: Results Past 24 Hours Test 12/26/16 00:00 12/26/16 05:44 12/26/16 11:52 Range/Units Total Creatine Kinase 73 71 80 39-308 U/L Creatine Kinase MB 1.0 0.6 1.0 0.5-3.6 ng/ml Creatine Kinase MB Ratio 1.4 0.8 1.3 0-3.0 Troponin I < 0.015 < 0.015 < 0.015 0-0.045 ng/ml Microbiology Results 12/26/16 MRSA DNA Surveillance Screen, Received Pending
[2016-12-26] MEDS: METHYLPREDNISOLONE IV 40 MG in SYRINGE 0 ML IV SCH (19:39)
[2016-12-26] MEDS: LEVOFLOXACIN / D5W 750 MG in PREMIXED IN D5W 150 ML IV SCH (21:36)
[2016-12-26 23:32] VITALS: BP 129/76; PULSE 76; TEMP 36.9; O2SAT 95
[2016-12-27] MEDS: NSS + 20MEQ KCL 1000ML 1,000 ML IV SCH ×2 (04:36→11:34)
[2016-12-27] MEDS: HEPARIN SOD 5000 UNIT/0.5 ML CARP SQ SCH ×3 (06:12→21:48)
[2016-12-27 07:18] VITALS: BP 113/71; PULSE 67; TEMP 36.8; O2SAT 96
[2016-12-27 07:45] VITALS: O2SAT 96
[2016-12-27] MEDS: PHENYTOIN SODIUM ER 100 MG CAP PO SCH ×2 (08:35→20:14)
[2016-12-27] MEDS: PANTOprazole SOD 40 MG TAB PO SCH (08:35)
[2016-12-27] MEDS: OSELTAMIVIR PHOSPHATE 75 MG CAP PO SCH ×2 (08:36→20:14)
[2016-12-27] MEDS: CYANOCOBALAMIN 500 MCG TAB (VIT B-12) PO SCH (08:36)
[2016-12-27] MEDS: LORATADINE 10 MG TAB PO SCH (08:37)
[2016-12-27] MEDS: OXYMETAZOLINE HCL 0.05% NA SPR 15 ML BTL SCH ×2 (08:38→20:13)
[2016-12-27] MEDS ORDERED: COUGH DROP (SUGAR FREE) LOZ 24 LOZ/1 BOX ONE (08:50)
[2016-12-27] MEDS ORDERED: NURSING DECISION MEDICATION ORDER SCH (09:00)
[2016-12-27] MEDS: NAPROXEN 375 MG TAB PO PRN (09:59)
[2016-12-27] MEDS ORDERED: COUGH DROP (SUGAR FREE) LOZ 24 LOZ/1 BOX PO PRN (10:45)
[2016-12-27 15:27] VITALS: BP 106/70; PULSE 66; TEMP 36.6; O2SAT 94
--- NOTE | 2016-12-27 18:54 | Progress Note ---
Internal Med Progress Note Date of Service: December 27, 2016. Provider Documentation: SUBJECTIVE: still has cough but sputum is getting thinner afebrile sob improving eating ok had 2-3 bowel movements today OBJECTIVE: Vital Signs-as noted below Exam: General-alert and awake and oriented x 3 ENT-normal hearing Neck-no neck masses Lungs-cta b/l mild b/l wheezing present no crackles Heart-s1 and s2 heard regular rate and rhythm no murmurs Abdomen-soft bowel sounds present non tender no distension Extremities- no edema present no erythema Neuro-alert and awake oriented x 3 moves extremities Lab data as noted below. ASSESSMENT & PLAN: 1. Bibasilar pneumonia with influenza B. on Tamiflu and Levaquin#3 improving slowly continue same will monitor. 2. Epilepsy. On phenytoin. stable. 3. Esophageal reflux, on omeprazole. 4. Asthma in remission, does not use any medications, has minimal wheezing. Will give nebulized bronchodilator while in the hospital and also iv steroid..Stable will change to po steroid in am 5. Deep venous thrombosis prophylaxis with subcutaneous heparin. 6. Gastrointestinal prophylaxis with omeprazole. 7. Code status. He will be a full code. DISPOSITION to be determined Vital Signs: Date Time Temp Pulse Resp B/P Pulse Ox O2 Delivery O2 Flow Rate FiO2 12/27/16 16:00 Room Air 12/27/16 15:27 36.6 66 20 106/70 94 Room Air 12/27/16 07:45 96 Room Air 12/27/16 07:18 36.8 67 16 113/71 96 Room Air 12/27/16 00:00 Room Air 12/26/16 23:32 36.9 76 20 129/76 95 Room Air
[2016-12-27] MEDS: METHYLPREDNISOLONE IV 40 MG in SYRINGE 0 ML IV SCH (20:13)
[2016-12-27] MEDS: ALBUT/IPRATROP 3MG/0.5MG NEB 3 ML VIAL INH SCH (20:30)
[2016-12-27 20:32] VITALS: PULSE 88; O2SAT 95
[2016-12-27] MEDS: LEVOFLOXACIN / D5W 750 MG in PREMIXED IN D5W 150 ML IV SCH (21:44)
[2016-12-28] VITALS (7 sets, daily range): BP systolic 102–131; BP diastolic 66–86; PULSE 52–77; TEMP 36.4–36.8; O2SAT 93–94
[2016-12-28] MEDS: HEPARIN SOD 5000 UNIT/0.5 ML CARP SQ SCH (05:53)
[2016-12-28 07:05] LABS: HEMATOCRIT 38.7 % (42-52); MEAN CELL VOLUME 89.2 fL (80-100); MEAN CORPUSCULAR HEMOGLOBIN 31.1 pg (25-34); MEAN CORPUSCULAR HGB CONC 34.9 g/dl (32-36); MEAN PLATELET VOLUME 9.2 fL (7.4-10.4); PLATELET COUNT 120 K/uL (130-400); RED BLOOD COUNT 4.34 M/uL (4.7-6.1); WHITE BLOOD COUNT 2.03 K/uL (4.8-10.8)
[2016-12-28 07:08] LABS: BASO % 0.5 %; BASO ABS # 0.01 K/uL (0-0.2); COMPLETE YES; IG% 0.5 %; LYMPH % 57.6 %; LYMPH ABS # 1.17 K/uL (1.2-3.4); MONO % 18.2 %; NEUT % 23.2 %
--- NOTE | 2016-12-28 07:10 | DIAGNOSTIC IMAGING REPORT ---
CHEST ONE VIEW PORTABLE CLINICAL HISTORY: Congestion. Pneumonia. COMPARISON STUDY: Chest radiograph October 24, 2016. FINDINGS: There is no pneumothorax or pleural effusion. Cardiac size is normal. Mediastinal contours are normal. Bibasilar opacities have resolved. No evidence of pulmonary edema. IMPRESSION: Resolution of bibasilar opacities. Electronically signed by: Reji Upton M.D. 12/28/2016 7:08 AM Dictated Date/Time: 12/28/2016 7:08 AM
[2016-12-28 07:13] LABS: BUN/CREATININE RATIO 12.6 (10-20); CREATININE 0.72 mg/dl (0.60-1.40); POTASSIUM 4.3 mmol/L (3.5-5.1)
[2016-12-28] MEDS: ALBUT/IPRATROP 3MG/0.5MG NEB 3 ML VIAL INH SCH ×2 (07:14→19:14)
[2016-12-28] MEDS: PANTOprazole SOD 40 MG TAB PO SCH (07:58)
[2016-12-28] MEDS: PHENYTOIN SODIUM ER 100 MG CAP PO SCH ×2 (07:58→20:09)
[2016-12-28] MEDS: CYANOCOBALAMIN 500 MCG TAB (VIT B-12) PO SCH (07:59)
[2016-12-28] MEDS: NAPROXEN 375 MG TAB PO PRN (07:59)
[2016-12-28] MEDS: OSELTAMIVIR PHOSPHATE 75 MG CAP PO SCH ×2 (07:59→20:09)
[2016-12-28] MEDS: LORATADINE 10 MG TAB PO SCH (07:59)
[2016-12-28] MEDS: OXYMETAZOLINE HCL 0.05% NA SPR 15 ML BTL SCH ×2 (07:59→20:09)
[2016-12-28] MEDS ORDERED: GUAIFENESIN SUGAR FREE 100 MG/5 ML UDC PO PRN (10:15)
[2016-12-28] MEDS ORDERED: GUAIFENESIN/CODEINE 100MG/10MG 5ML UDC PO PRN (10:15)
[2016-12-28] MEDS: BENZONATATE 100MG CAP PO SCH ×2 (13:52→20:09)
--- NOTE | 2016-12-28 17:55 | Progress Note ---
Internal Med Progress Note Date of Service: December 28, 2016. Provider Documentation: SUBJECTIVE: still has cough but sputum is getting much thinner afebrile sob much better cough is getting better appetite poor ambulated in room ok OBJECTIVE: Vital Signs-as noted below Exam: General-alert and awake and oriented x 3 ENT-normal hearing Neck-no neck masses Lungs-cta b/l mild b/l wheezing present no crackles Heart-s1 and s2 heard regular rate and rhythm no murmurs Abdomen-soft bowel sounds present non tender no distension Extremities- no edema present no erythema Neuro-alert and awake oriented x 3 moves extremities Lab data as noted below. ASSESSMENT & PLAN: 1. Bibasilar pneumonia with influenza B. on Tamiflu and Levaquin#4 improving slowly continue same will monitor. 2. Neutropenia mostly from above neutropenia precautions f/u labs 3. Epilepsy. On phenytoin. stable. 4. Esophageal reflux, on omeprazole. 5. Asthma in remission, does not use any medications, has minimal wheezing. Will give nebulized bronchodilator while in the hospital and also iv steroid..Stable will change to po steroid in am. stable 6. Deep venous thrombosis prophylaxis with subcutaneous heparin. changed to scds and ambulation 7. Gastrointestinal prophylaxis with omeprazole. 8. Code status. He will be a full code. DISPOSITION possible d/c in 2-3 days Vital Signs: Date Time Temp Pulse Resp B/P Pulse Ox O2 Delivery O2 Flow Rate FiO2 12/28/16 16:00 Room Air 12/28/16 15:14 36.4 52 18 131/86 94 Room Air 12/28/16 07:45 94 Room Air 12/28/16 07:15 77 18 94 Room Air 12/28/16 07:02 36.8 64 20 121/79 94 Room Air 12/28/16 00:01 36.7 69 20 102/66 94 Room Air 12/27/16 23:20 Room Air 12/27/16 20:32 88 18 95 Room Air Lab Results: Results Past 24 Hours Test 12/28/16 05:44 Range/Units White Blood Count 2.03 4.8-10.8 K/uL Red Blood Count 4.34 4.7-6.1 M/uL Hemoglobin 13.5 14.0-18.0 g/dL Hematocrit 38.7 42-52 % Mean Corpuscular Volume 89.2 80-100 fL Mean Corpuscular Hemoglobin 31.1 25-34 pg Mean Corpuscular Hemoglobin Concent 34.9 32-36 g/dl Platelet Count 120 130-400 K/uL Mean Platelet Volume 9.2 7.4-10.4 fL Neutrophils (%) (Auto) 23.2 % Lymphocytes (%) (Auto) 57.6 % Monocytes (%) (Auto) 18.2 % Eosinophils (%) (Auto) 0.0 % Basophils (%) (Auto) 0.5 % Neutrophils # (Auto) 0.47 1.4-6.5 K/uL Lymphocytes # (Auto) 1.17 1.2-3.4 K/uL Monocytes # (Auto) 0.37 0.11-0.59 K/uL Eosinophils # (Auto) 0.00 0-0.5 K/uL Basophils # (Auto) 0.01 0-0.2 K/uL RDW Standard Deviation 43.9 36.4-46.3 fL RDW Coefficient of Variation 13.3 11.5-14.5 % Immature Granulocyte % (Auto) 0.5 % Immature Granulocyte # (Auto) 0.01 0.00-0.02 K/uL Sodium Level 145 136-145 mmol/L Potassium Level 4.3 3.5-5.1 mmol/L Chloride Level 110 98-107 mmol/L Carbon Dioxide Level 29 21-32 mmol/L Anion Gap 6.0 3-11 mmol/L Blood Urea Nitrogen 9 7-18 mg/dl Creatinine 0.72 0.60-1.40 mg/dl Est Creatinine Clear Calc Drug Dose 102.9 ml/min Estimated GFR () 115.9 Estimated GFR (Non- 100.0 BUN/Creatinine Ratio 12.6 10-20 Random Glucose 94 70-99 mg/dl Calcium Level 8.0 8.5-10.1 mg/dl Magnesium Level 2.0 1.8-2.4 mg/dl Microbiology Results 12/28/16 C.difficile Toxin B Gene (PCR) - Final, Complete No C. difficile toxin B gene detected
[2016-12-28] MEDS: IPRATROPIUM BROMIDE/ALBUTEROL respimat INH INH SCH (19:14)
[2016-12-28] MEDS: METHYLPREDNISOLONE IV 40 MG in SYRINGE 0 ML IV SCH (20:10)
[2016-12-28] MEDS: LEVOFLOXACIN / D5W 750 MG in PREMIXED IN D5W 150 ML IV SCH (22:08)
[2016-12-29 07:07] VITALS: BP 124/81; PULSE 63; TEMP 36.4; O2SAT 96
[2016-12-29 08:00] VITALS: O2SAT 96
[2016-12-29] MEDS: IPRATROPIUM BROMIDE/ALBUTEROL respimat INH INH SCH ×2 (08:08→20:01)
[2016-12-29] MEDS: BENZONATATE 100MG CAP PO SCH ×3 (08:09→20:03)
[2016-12-29] MEDS: CYANOCOBALAMIN 500 MCG TAB (VIT B-12) PO SCH (08:09)
[2016-12-29] MEDS: OXYMETAZOLINE HCL 0.05% NA SPR 15 ML BTL SCH ×2 (08:09→20:01)
[2016-12-29] MEDS: PHENYTOIN SODIUM ER 100 MG CAP PO SCH ×2 (08:10→20:03)
[2016-12-29] MEDS: LORATADINE 10 MG TAB PO SCH (08:10)
[2016-12-29] MEDS: OSELTAMIVIR PHOSPHATE 75 MG CAP PO SCH ×2 (08:10→20:03)
[2016-12-29] MEDS: PANTOprazole SOD 40 MG TAB PO SCH (08:12)
[2016-12-29 14:26] VITALS: PULSE 80; O2SAT 96
[2016-12-29] MEDS: ALBUT/IPRATROP 3MG/0.5MG NEB 3 ML VIAL INH PRN (14:26)
[2016-12-29 14:57] VITALS: BP 112/76; PULSE 72; TEMP 36.7; O2SAT 94
[2016-12-29 16:00] VITALS: O2SAT 94
[2016-12-29 16:24] LABS: HEMATOCRIT 39.6 % (42-52); MEAN CELL VOLUME 88.8 fL (80-100); MEAN CORPUSCULAR HEMOGLOBIN 31.6 pg (25-34); MEAN CORPUSCULAR HGB CONC 35.6 g/dl (32-36); MEAN PLATELET VOLUME 8.6 fL (7.4-10.4); PLATELET COUNT 130 K/uL (130-400); RED BLOOD COUNT 4.46 M/uL (4.7-6.1); WHITE BLOOD COUNT 2.86 K/uL (4.8-10.8)
[2016-12-29 16:26] LABS: BASO ABS # 0.05 K/uL (0-0.2); BASOPHIL % 1.7 % (0-2); COMPLETE YES; LYMPH ABS # 0.94 K/uL (1.2-3.4); NEUTROPHILS % 39.2 %; VARIANT LYM ABS # 0.52 K/uL; VARIANT LYMPHOCYTE % 18.3 %
--- NOTE | 2016-12-29 19:12 | Progress Note ---
Internal Med Progress Note Date of Service: December 29, 2016. Provider Documentation: SUBJECTIVE: sob and cough getting better ambulated fine no diarrhea today afebrile eating ok OBJECTIVE: Vital Signs-as noted below Exam: General-alert and awake and oriented x 3 ENT-normal hearing Neck-no neck masses Lungs-cta b/l mild b/l wheezing present no crackles Heart-s1 and s2 heard regular rate and rhythm no murmurs Abdomen-soft bowel sounds present non tender no distension Extremities- no edema present no erythema Neuro-alert and awake oriented x 3 moves extremities Lab data as noted below. ASSESSMENT & PLAN: 1. Bibasilar pneumonia with influenza B. on Tamiflu and Levaquin#5 improving slowly continue same if stable possible d/c in am 2. Neutropenia mostly from above neutropenia precautions improving f/u labs 3. Epilepsy. On phenytoin. stable. 4. Esophageal reflux, on omeprazole. 5. Asthma in remission, does not use any medications, has minimal wheezing. Will give nebulized bronchodilator while in the hospital and also iv steroid..Stable changed to po steroid today. stable 6. Deep venous thrombosis prophylaxis with subcutaneous heparin. changed to scds and ambulation 7. Gastrointestinal prophylaxis with omeprazole. 8. Code status. full code. DISPOSITION possible d/c in am if stable Vital Signs: Date Time Temp Pulse Resp B/P Pulse Ox O2 Delivery O2 Flow Rate FiO2 12/29/16 16:00 94 Room Air 12/29/16 14:57 36.7 72 18 112/76 94 Room Air 12/29/16 14:26 80 18 96 Room Air 12/29/16 08:00 96 Room Air 12/29/16 07:07 36.4 63 20 124/81 96 Room Air 12/29/16 00:00 Room Air 12/28/16 23:15 36.8 67 20 106/75 93 Room Air 12/28/16 19:14 70 18 94 Room Air Lab Results: Results Past 24 Hours Test 12/29/16 15:35 Range/Units White Blood Count 2.86 4.8-10.8 K/uL Red Blood Count 4.46 4.7-6.1 M/uL Hemoglobin 14.1 14.0-18.0 g/dL Hematocrit 39.6 42-52 % Mean Corpuscular Volume 88.8 80-100 fL Mean Corpuscular Hemoglobin 31.6 25-34 pg Mean Corpuscular Hemoglobin Concent 35.6 32-36 g/dl Platelet Count 130 130-400 K/uL Mean Platelet Volume 8.6 7.4-10.4 fL RDW Standard Deviation 43.9 36.4-46.3 fL RDW Coefficient of Variation 13.4 11.5-14.5 % Neutrophils % (Manual) 39.2 % Lymphocytes % (Manual) 33.0 % Variant Lymphocytes % (manual) 18.3 % Monocytes % (Manual) 7.8 % Basophils % (Manual) 1.7 0-2 % Neutrophils # (Manual) 1.12 1.4-6.5 K/uL Total Absolute Neutrophils 1.12 1.4-6.5 K/uL Lymphocytes # (Manual) 0.94 1.2-3.4 K/uL Absolute Variant Lymphocytes 0.52 K/uL Total Absolute Lymphocytes 1.47 1.2-3.4 K/uL Monocytes # (Manual) 0.22 0.11-0.59 K/uL Basophils # (Manual) 0.05 0-0.2 K/uL Red Blood Cell Morphology Unremarkable
[2016-12-29] MEDS: LEVOFLOXACIN / D5W 750 MG in PREMIXED IN D5W 150 ML IV SCH (21:09)
[2016-12-29 23:05] VITALS: BP 127/80; PULSE 68; TEMP 36.9; O2SAT 91
[2016-12-30 07:01] LABS: BASO % 0.6 %; BASO ABS # 0.02 K/uL (0-0.2); COMPLETE YES; EOS % 0.6 %; HEMATOCRIT 38.4 % (42-52); IG% 0.6 %; LYMPH % 43.8 %; LYMPH ABS # 1.47 K/uL (1.2-3.4); MEAN CELL VOLUME 88.1 fL (80-100); MEAN CORPUSCULAR HEMOGLOBIN 31.7 pg (25-34); MEAN CORPUSCULAR HGB CONC 35.9 g/dl (32-36); MEAN PLATELET VOLUME 9.3 fL (7.4-10.4); MONO % 15.5 %; NEUT % 38.9 %; PLATELET COUNT 131 K/uL (130-400); RED BLOOD COUNT 4.36 M/uL (4.7-6.1); WHITE BLOOD COUNT 3.36 K/uL (4.8-10.8)
[2016-12-30 07:34] VITALS: BP 122/75; PULSE 62; TEMP 36.6; O2SAT 94
[2016-12-30 08:00] VITALS: O2SAT 93
[2016-12-30] MEDS: OXYMETAZOLINE HCL 0.05% NA SPR 15 ML BTL SCH (08:50)
[2016-12-30] MEDS: IPRATROPIUM BROMIDE/ALBUTEROL respimat INH INH SCH (08:50)
[2016-12-30] MEDS: LORATADINE 10 MG TAB PO SCH (08:54)
[2016-12-30] MEDS: CYANOCOBALAMIN 500 MCG TAB (VIT B-12) PO SCH (08:54)
[2016-12-30] MEDS: OSELTAMIVIR PHOSPHATE 75 MG CAP PO SCH (08:55)
[2016-12-30] MEDS: PHENYTOIN SODIUM ER 100 MG CAP PO SCH (08:55)
[2016-12-30] MEDS: BENZONATATE 100MG CAP PO SCH ×2 (08:55→14:26)
[2016-12-30] MEDS: PANTOprazole SOD 40 MG TAB PO SCH (08:56)
[2016-12-30] MEDS ORDERED: BENZ1CAP90 PO (12:36)
[2016-12-30] MEDS ORDERED: PRED10TA PO (12:36)
[2016-12-30] MEDS ORDERED: VNTHFA/IN INH (12:36)
[2016-12-30] MEDS ORDERED: LEVO750T23 PO (12:36)
--- NOTE | 2016-12-30 12:38 | Discharge Instructions ---
Discharge Instructions Date of Service December 30, 2016. Admission Reason for Admission: Influenza B, Pneumonia Discharge Discharge Diagnosis / Problem: INFLUENZA B, PNEUMONIA Discharge Goals Goal(s): Decrease discomfort, Improve function Activity Recommendations Activity Limitations: resume your previous activity . Instructions / Follow-Up Instructions / Follow-Up FOLLOWUP WITH FAMILY DOCTOR Howie Null ON January AT 2:45PM Current Hospital Diet Patient's current hospital diet: Regular Diet Discharge Diet Recommended Diet: Regular Diet Pending Studies Studies pending at discharge: no Medical Emergencies . Who to Call and When: Medical Emergencies: If at any time you feel your situation is an emergency, please call 911 immediately. . Non-Emergent Contact Non-Emergency issues call your: Primary Care Provider . . "Provider Documentation" section prepared by Juan José Mccabe. . VTE Core Measure Inpt VTE Proph given/why not?: Unfractionated heparin SQ (REFUSED), SCD's
[2016-12-30] MEDS ORDERED: CALCIUM CARBONATE 500 MG CHEWABLE PO ONE (13:45)
[2016-12-30 14:02] VITALS: BP 122/75; PULSE 62; TEMP 36.6; O2SAT 93
--- NOTE | 2016-12-30 14:04 | Progress Note ---
Internal Med Progress Note Date of Service: December 30, 2016. Provider Documentation: SUBJECTIVE denies sob cough much better afebrile ambulating fine no chest pain ok for discharge. OBJECTIVE: Vital Signs-as noted below Exam: General-alert and awake and oriented x 3 ENT-normal hearing Neck-no neck masses Lungs-cta b/l mild b/l wheezing present no crackles Heart-s1 and s2 heard regular rate and rhythm no murmurs Abdomen-soft bowel sounds present non tender no distension Extremities- no edema present no erythema Neuro-alert and awake oriented x 3 moves extremities Lab data as noted below. ASSESSMENT & PLAN: 1. Bibasilar pneumonia with influenza B. on Tamiflu and Levaquin#5 improving slowly continue same finished Tamiflu course d/c on couple more days of Levaquin f/u with pcp. 2. Neutropenia mostly from above neutropenia precautions improved 3. Epilepsy. On phenytoin. stable. 4. Esophageal reflux, on omeprazole. 5. Asthma in remission, does not use any medications, has minimal wheezing. Will give nebulized bronchodilator while in the hospital and also iv steroid..Stable changed to po steroid taper. f/u with pcp Discharged home Vital Signs: Date Time Temp Pulse Resp B/P Pulse Ox O2 Delivery O2 Flow Rate FiO2 12/30/16 08:00 93 Room Air 12/30/16 07:34 36.6 62 18 122/75 94 Room Air 12/30/16 00:00 Room Air 12/29/16 23:05 36.9 68 16 127/80 91 Room Air 12/29/16 16:00 94 Room Air 12/29/16 14:57 36.7 72 18 112/76 94 Room Air 12/29/16 14:26 80 18 96 Room Air Lab Results: Results Past 24 Hours Test 12/29/16 15:35 12/30/16 06:26 Range/Units White Blood Count 2.86 3.36 4.8-10.8 K/uL Red Blood Count 4.46 4.36 4.7-6.1 M/uL Hemoglobin 14.1 13.8 14.0-18.0 g/dL Hematocrit 39.6 38.4 42-52 % Mean Corpuscular Volume 88.8 88.1 80-100 fL Mean Corpuscular Hemoglobin 31.6 31.7 25-34 pg Mean Corpuscular Hemoglobin Concent 35.6 35.9 32-36 g/dl Platelet Count 130 131 130-400 K/uL Mean Platelet Volume 8.6 9.3 7.4-10.4 fL RDW Standard Deviation 43.9 42.6 36.4-46.3 fL RDW Coefficient of Variation 13.4 13.2 11.5-14.5 % Neutrophils % (Manual) 39.2 % Lymphocytes % (Manual) 33.0 % Variant Lymphocytes % (manual) 18.3 % Monocytes % (Manual) 7.8 % Basophils % (Manual) 1.7 0-2 % Neutrophils # (Manual) 1.12 1.4-6.5 K/uL Total Absolute Neutrophils 1.12 1.4-6.5 K/uL Lymphocytes # (Manual) 0.94 1.2-3.4 K/uL Absolute Variant Lymphocytes 0.52 K/uL Total Absolute Lymphocytes 1.47 1.2-3.4 K/uL Monocytes # (Manual) 0.22 0.11-0.59 K/uL Basophils # (Manual) 0.05 0-0.2 K/uL Red Blood Cell Morphology Unremarkable Neutrophils (%) (Auto) 38.9 % Lymphocytes (%) (Auto) 43.8 % Monocytes (%) (Auto) 15.5 % Eosinophils (%) (Auto) 0.6 % Basophils (%) (Auto) 0.6 % Neutrophils # (Auto) 1.31 1.4-6.5 K/uL Lymphocytes # (Auto) 1.47 1.2-3.4 K/uL Monocytes # (Auto) 0.52 0.11-0.59 K/uL Eosinophils # (Auto) 0.02 0-0.5 K/uL Basophils # (Auto) 0.02 0-0.2 K/uL Immature Granulocyte % (Auto) 0.6 % Immature Granulocyte # (Auto) 0.02 0.00-0.02 K/uL
--- NOTE | 2016-12-30 14:15 | Discharge Summary ---
Discharge Summary Date of Service December 30, 2016. Discharge Summary Admission Date: December 25, 2016 at 00:50 Discharge Date: December 30, 2016 Discharge Disposition: Home Principal Diagnosis: INFLUENZA B PNEUMONIA Secondary Diagnoses/Problems: epilepsy, esophageal reflux, asthma in remission, chronic back pain, Procedures: CXR: Bibasilar opacities which statistically reflect atelectasis on this hypoventilatory study. Consolidation is considered less likely. Medication Reconciliation New Medications: Albuterol Hfa (Ventolin Hfa) 200 Puffs/29831 Mcg Aers 2 PUFFS INH Q4 PRN for SOB/Wheezing, #1 INHALER 1 Refill Benzonatate (Tessalon Perles) 200 Mg Cap 200 MG PO TID PRN for Cough, #30 CAP Levofloxacin (Levaquin) 750 Mg Tab 1 TAB PO DAILY for 2 Days, #2 TAB Prednisone Tab (Prednisone) 10 Mg Tab 40 MG PO UD, #20 TAB PREDNSIONE 40MG PO DAILY X 2 DAYS THEN PREDNSIONE 30MG PO DAILY X 2 DAYS THEN PREDNSIONE 20MG PO DAILY X 2 DAYS THEN PREDNSIONE 10MG PO DAILY X 2 DAYS THEN STOP. Continued Medications: Cyanocobalamin (B12) 1,000 Mcg Tab 1 TAB PO DAILY Folic Acid (Folvite) 1 Mg Tab 1 TAB PO DAILY for 90 Days, #90 TAB 1 Refill Omeprazole (Prilosec) 20 Mg Capcr 20 MG PO DAILY, CAP Phenytoin Sodium Extended (Dilantin) 30 Mg Cap 200 MG PO BID, CAP Admission Information HPI (per Admitting provider): He is a 61-year-old male with significant past medical history of epilepsy, esophageal reflux, asthma in remission and also chronic back pain, apparently has been complaining of cough with weakness and fever since Thursday midnight. He woke up at midnight Thursday with cough. At that time, he was feeling warm and had some cough without any production of any phlegm. He went to work but the condition has been getting worse. Today, he was really very tired, very warm and sweaty at times, more cough and some shortness of breath. He came to Emergency Room for a checkup. He was noted to have a fever of 38.8 with a pulse rate of 120 initially and normal saturation, and he was positive for influenza B and also x-ray did show bibasilar infiltration. From that point, blood culture was taken and he was started with intravenous Levaquin and also oral Tamiflu and was advised admission. When asking question, he mentions that he has been in [place] recently and while in there, he had a bite by an insect on his left cheek and that was red and just light a dime in size. He does have some swelling in the left facial area since then, but the bite aj is gone. He denies to have any chest pain. He does not have any shortness of breath. He denies to have any swelling of the legs or any joint pain. He does not have any nausea or vomiting. He does not have any headache or any blurred vision, or any numbness or tingling in the extremities. Physical Exam (per Admitting): GENERAL: On examination in the Emergency Room, he was not having any acute distress except some weakness and cough, nonproductive. HEENT: Unremarkable. VITAL SIGNS: Temperature 38.8, pulse was 107, blood pressure 126/78, saturation 96% on 2 liters nasal cannula. HEENT: Unremarkable. NECK: Supple. No JVD, no bruit, no lymphadenopathy. CHEST: Occasional crackles at the bases. HEART: S1, S2 regular, no murmur. ABDOMEN: Soft, benign, nontender, no organomegaly. Bowel sounds present. EXTREMITIES: Negative for any edema. MUSCULOSKELETAL: Did not show any acute arthritis. CENTRAL NERVOUS SYSTEM: Alert, awake, oriented x3. No focal sensory and/or motor deficit appreciated. Hospital Course 1. Bibasilar pneumonia with influenza B. on Tamiflu and Levaquin#5 improving slowly continue same finished Tamiflu course d/c on couple more days of Levaquin f/u with pcp. 2. Neutropenia mostly from above neutropenia precautions improved 3. Epilepsy. On phenytoin. stable. 4. Esophageal reflux, on omeprazole. 5. Asthma in remission, does not use any medications, has minimal wheezing. Will give nebulized bronchodilator while in the hospital and also iv steroid..Stable changed to po steroid taper. f/u with pcp Discharged home Total time spent on discharge = 35MINUTES This includes examination of the patient, discharge planning, medication reconciliation, and communication with other providers. Discharge Instructions Please take this sheet to every appointment for the next month Discharge Instructions Date of Service December 30, 2016. Admission Reason for Admission: Influenza B, Pneumonia Discharge Discharge Diagnosis / Problem: INFLUENZA B, PNEUMONIA Discharge Goals Goal(s): Decrease discomfort, Improve function Activity Recommendations Activity Limitations: resume your previous activity . Instructions / Follow-Up Instructions / Follow-Up FOLLOWUP WITH FAMILY DOCTOR Howie Null ON January AT 2:45PM Current Hospital Diet Patient's current hospital diet: Regular Diet Discharge Diet Recommended Diet: Regular Diet Pending Studies Studies pending at discharge: no Medical Emergencies . Who to Call and When: Medical Emergencies: If at any time you feel your situation is an emergency, please call 911 immediately. . Non-Emergent Contact Non-Emergency issues call your: Primary Care Provider . . "Provider Documentation" section prepared by Juan José Mccabe. . VTE Core Measure Inpt VTE Proph given/why not?: Unfractionated heparin SQ (REFUSED), SCD's
== END 2016-12-30 14:35 | disposition home or self-care (01) | DRG 195 ==
LOC: ENRESERVTM → ENRESERVDT → C.EDB 21:45 → C.MS4W 12-25 00:50
PROVIDERS: ADMIT Internal Medicine; ATTEND Internal Medicine
DX: J11.00 Influenza due to unidentified influenza virus with unspecified type of pneumonia (principal); G40.909 Epilepsy, unspecified, not intractable, without status epilepticus; K21.9 Gastro-esophageal reflux disease without esophagitis; I45.10 Unspecified right bundle-branch block; G89.29 Other chronic pain; M51.36 Other intervertebral disc degeneration, lumbar region; D70.9 Neutropenia, unspecified; Z79.899 Other long term (current) drug therapy; Z87.09 Personal history of other diseases of the respiratory system

== ENCOUNTER 2017-08-24 14:08 | Inpatient (IN) | payer BC, OTHER ==
[~2017-08-24] VITALS: Ht 172.7 cm; Wt 81.4 kg
[~2017-08-24 14:08] MED LIST changes: -FOLI1TAB7 PO; +FOLI1TAB8 PO; +VNTHFA/IN INH
[2017-08-24] MEDS ORDERED: METHYLPREDNISOLONE 125 MG VIAL IV STA (15:05)
--- NOTE | 2017-08-24 15:07 | EMERGENCY ROOM VISIT NOTE ---
History Report prepared by Lizeth: Jim Orozco Under the Supervision of: Dr. Davin Jordan M.D. First contact with patient: 14:47 Chief Complaint: SHORTNESS OF BREATH Stated Complaint: SOB,PCP REFFERED Nursing Triage Summary: Pt reports seen at [facility] in [place] for difficulty breathing, cough of clear mucous. Sx since before . Dx 07/25 with bronchitis, hx of pneumonia. States bronchitis never fully resolved. History of Present Illness The patient is a 61 year old white male with a past medical history of seizures , reflux, and asthma who presents to the ED with a cc of worsening shortness of breath beginning since the end of July which is worse with walking, though not with laying flat. Positive chest discomfort and a productive cough that brings up clear mucous. Negative hemoptysis, sore throat, nausea, vomiting, sweating, leg pain, and blood thinner use. The patient reports that he had pneumonia in the summer, and then he got bronchitis in the end of July. He was given antibiotics and steroids, and he states that he has not gotten better since then. He has used his inhaler, and this helps his shortness of breath. The patient does not smoke. Source of History: patient Onset: the end of July Position: other (global) Quality: other (shortness of breath) Timing: worsening Modifying Factors (Worsening): other (walking) Modifying Factors (Relieving): other (inhaler) Associated Symptoms: + cough, No sorethroat, No nausea, No vomiting Note: Associated symptoms: Chest discomfort Review of Systems See HPI for pertinent positives and negatives. A total of ten systems were reviewed and were otherwise negative. Past Medical & Surgical Medical Problems: (1) Acute bronchitis (2) GERD (gastroesophageal reflux disease) (3) Influenza B (4) Pneumonia (5) Seizure disorder Family History FH: heart disease FHx: gallbladder disease Hypertension Social History Smoking Status: Never Smoker Alcohol Use: none Occupation Status: employed Current/Historical Medications Scheduled Cyanocobalamin (B12), 1 TAB PO DAILY Folic Acid (Folvite), 1 TAB PO DAILY Omeprazole (Prilosec), 20 MG PO DAILY Phenytoin Sodium Extended (Dilantin), 200 MG PO BID Scheduled PRN Albuterol Hfa (Ventolin Hfa), 2 PUFFS INH Q4 PRN for SOB/Wheezing Allergies Coded Allergies: Morphine (Unverified Allergy, Unknown, IV, RED STREAKS UP ARM, 08/24/17) Physical Exam Vital Signs Date Time Temp Pulse Resp B/P (MAP) Pulse Ox O2 Delivery O2 Flow Rate FiO2 08/24/17 17:50 87 20 92 Room Air 08/24/17 16:16 82 20 142/75 92 Room Air 08/24/17 15:36 71 30 128/88 99 Mask 6.0 08/24/17 15:26 76 08/24/17 15:23 97 Room Air 08/24/17 15:18 99 Room Air 08/24/17 14:24 97 Room Air 08/24/17 14:24 36.8 73 20 139/89 97 Room Air Physical Exam GENERAL: Awake, alert, well-appearing, NAD, non-toxic HENT: Normocephalic, atraumatic. EYES: Normal conjunctiva. Sclera non-icteric. NECK: Supple. No nuchal rigidity. FROM. No stridor. RESPIRATORY: CTAB, no rhonchi, wheezing, crackles CARDIAC: RRR, no MRG ABDOMEN: Soft, NTND, BS+ MSK: No chest wall TTP, no LE edema NEURO: GCS 15, CN 2-12 intact, moves all 4s on command SKIN: Scant bruising to the left liu. No rash or jaundice noted. Medical Decision & Procedures ER Provider Diagnostic Interpretation: Radiology results as stated below per my review and radiologist interpretation: CHEST ONE VIEW PORTABLE HISTORY: 61 years-old Male EVALUATE RESPIRATORY DISTRESS.DYSPNEA acute respiratory distress with shortness of breath COMPARISON: Chest radiograph 12/28/2016 TECHNIQUE: Portable AP view of the chest FINDINGS: Cardiac mediastinal and hilar silhouettes are within normal limits. No pneumothorax, pleural effusion, focal airspace consolidation or overt pulmonary edema. Bones of the chest appear grossly intact. IMPRESSION: No acute process. The above report was generated using voice recognition software. It may contain grammatical, syntax or spelling errors. Electronically signed by: Atul Ziegler M.D. 08/24/2017 3:26 PM Dictated Date/Time: 08/24/2017 3:25 PM Laboratory Results 08/24/17 15:10 Red Blood Count 4.82, Mean Corpuscular Volume 89.8, Mean Corpuscular Hemoglobin 32.2, Mean Corpuscular Hemoglobin Concent 35.8, Mean Platelet Volume 9.1, Neutrophils (%) (Auto) 65.7, Lymphocytes (%) (Auto) 19.4, Monocytes (%) (Auto) 8.2, Eosinophils (%) (Auto) 5.7, Basophils (%) (Auto) 0.7, Neutrophils # (Auto) 4.50, Lymphocytes # (Auto) 1.33, Monocytes # (Auto) 0.56, Eosinophils # (Auto) 0.39, Basophils # (Auto) 0.05 08/24/17 15:10 Test 08/24/17 15:10 White Blood Count 6.85 K/uL (4.8-10.8) Red Blood Count 4.82 M/uL (4.7-6.1) Hemoglobin 15.5 g/dL (14.0-18.0) Hematocrit 43.3 % (42-52) Mean Corpuscular Volume 89.8 fL (80-100) Mean Corpuscular Hemoglobin 32.2 pg (25-34) Mean Corpuscular Hemoglobin Concent 35.8 g/dl (32-36) Platelet Count 151 K/uL (130-400) Mean Platelet Volume 9.1 fL (7.4-10.4) Neutrophils (%) (Auto) 65.7 % Lymphocytes (%) (Auto) 19.4 % Monocytes (%) (Auto) 8.2 % Eosinophils (%) (Auto) 5.7 % Basophils (%) (Auto) 0.7 % Neutrophils # (Auto) 4.50 K/uL (1.4-6.5) Lymphocytes # (Auto) 1.33 K/uL (1.2-3.4) Monocytes # (Auto) 0.56 K/uL (0.11-0.59) Eosinophils # (Auto) 0.39 K/uL (0-0.5) Basophils # (Auto) 0.05 K/uL (0-0.2) RDW Standard Deviation 43.5 fL (36.4-46.3) RDW Coefficient of Variation 13.3 % (11.5-14.5) Immature Granulocyte % (Auto) 0.3 % Immature Granulocyte # (Auto) 0.02 K/uL (0.00-0.02) Prothrombin Time 10.5 SECONDS (9.0-12.0) Prothromb Time International Ratio 1.0 (0.9-1.1) Activated Partial Thromboplast Time 27.1 SECONDS (21.0-31.0) Partial Thromboplastin Ratio 1.0 Anion Gap 5.0 mmol/L (3-11) Est Creatinine Clear Calc Drug Dose 76.6 ml/min Estimated GFR () 87.7 Estimated GFR (Non- 75.7 BUN/Creatinine Ratio 15.9 (10-20) Calcium Level 8.6 mg/dl (8.5-10.1) Troponin I < 0.015 ng/ml (0-0.045) Pro-B-Type Natriuretic Peptide 85 pg/ml (0-900) Laboratory results reviewed by me Medications Administered Medications (Trade) Dose Ordered Sig/Wade Route Start Time Stop Time Status Last Admin Dose Admin Albuterol/ Ipratropium (Duoneb) 9 ml ONE ONCE INH 08/24/17 15:15 08/24/17 15:16 DC 08/24/17 15:35 9 ML Methylprednisolone Sodium Succinate (Solu-Medrol IV) 125 mg NOW STAT IV 08/24/17 15:05 08/24/17 15:08 DC 08/24/17 15:36 125 MG Benzonatate (Tessalon Perles Cap) 100 mg NOW ONCE PO 08/24/17 17:00 08/24/17 17:01 DC 08/24/17 17:01 100 MG ECG Indication: SOB/dyspnea Rate (beats per minute): 68 Findings: RBBB, T-wave inversion (Anterior and inferior), left axis deviation, other (Wide QRS) Comparison ECG Date: 12/26/16 Change: RBBB, left axis deviation, and T wave inversions are old Patient's electrocardiogram interpreted by me. ED Course 1447: The patient was evaluated in room C4. A complete history and physical exam was performed. 1604: I reevaluated the patient, and the patient is going to get a walk test. 1647: I reevaluated the patient, and he was doing okay, and I am going to do a bedside echo. 1705: Discussed the patient's case with Dr. Mccabe. The patient will be evaluated for further treatment and disposition. Medical Decision The patient is a 61 year old white male with a past medical history of seizures , reflux, and asthma who presents to the ED with a cc of worsening shortness of breath beginning since the end of July which is worse with walking, though not with laying flat. Differential diagnosis: Etiologies such as infections, reactive airway disease, pneumonia, pneumothorax , COPD, CHF, cardiac ischemia, pulmonary embolism, musculoskeletal, gastrointestinal, as well as others were entertained. Patient was seen and evaluated the bedside. Patient has been complaining of some shortness of breath. Patient states he does have some exertional dyspnea. Patient denies any prior history of DVT or PE. Patient denies any hemoptysis. Patient was recently diagnosed with bronchitis and the patient did have some prednisone as well as some Augmentin. Patient overall is fairly well- appearing although does describe some mild chest discomfort. Patient denies any orthopnea. Exam he does not appear volume overloaded and the patient sounds clear without any wheezing, rhonchi, or crackles. Patient did have blood work, EKG, troponin, BNP, chest x-ray. Patient's chest x-ray clear. Patient white blood cell count within normal limits. Patient has a normal hemoglobin. Patient's EKG did show a right bundle branch block and does not show any acute changes. Patient troponin negative. Patient BNP not elevated. I did have the patient perform an ambulatory trial. The patient was never hypoxic nor tachycardic however the patient does remember mildly tachypneic with shallow breaths. I did perform a bedside ultrasound. Patient did have a trace pericardial effusion. Patient's bedside echo did not seem normal to me. It seemed as though the aortic outflow obstructed the mitral inflow from the left atrium. Given that the patient was still mildly tachypneic with which to me appeared to be not a normal echocardiogram I did discuss the patient with the hospitalist. He did agree to further evaluate and treat the patient. Given the patient does not appear clinically volume overloaded and the patient does have a well score of 0 which makes him less likely a CHF exacerbation or PE respectively. Furthermore, patient's BNP is not elevated and the patient does have clear chest x-ray. Of note the patient did have mild hypokalemia however the patient did receive several DuoNeb's and the patient has been using his inhalers at home and may be related to cellular shift from the albuterol. Medication Reconcilliation Current Medication List: was personally reviewed by me Blood Pressure Screening Patient's blood pressure: Elevated blood pressure Monitored by the hospitalist Consults Time Called: 170 Consulting Physician: Dr. Mccabe Returned Call: [phone] Discussed the patient's case with Dr. Mccabe. The patient will be evaluated for further treatment and disposition. Impression Primary Impression: Shortness of breath Additional Impression: Hypokalemia Scribe Attestation The scribe's documentation has been prepared under my direction and personally reviewed by me in its entirety. I confirm that the note above accurately reflects all work, treatment, procedures, and medical decision making performed by me. Departure Information Dispostion Being Evaluated By Hospitalist Referrals Howie Hendricks D.O. (PCP) Patient Instructions My [facility] Problem Qualifiers
[2017-08-24] MEDS ORDERED: ALBUT/IPRATROP 3MG/0.5MG NEB 3 ML VIAL INH ONE (15:15)
--- NOTE | 2017-08-24 15:27 | DIAGNOSTIC IMAGING REPORT ---
CHEST ONE VIEW PORTABLE HISTORY: 61 years-old Male EVALUATE RESPIRATORY DISTRESS.DYSPNEA acute respiratory distress with shortness of breath COMPARISON: Chest radiograph 12/28/2016 TECHNIQUE: Portable AP view of the chest FINDINGS: Cardiac mediastinal and hilar silhouettes are within normal limits. No pneumothorax, pleural effusion, focal airspace consolidation or overt pulmonary edema. Bones of the chest appear grossly intact. IMPRESSION: No acute process. The above report was generated using voice recognition software. It may contain grammatical, syntax or spelling errors. Electronically signed by: Atul Ziegler M.D. 08/24/2017 3:26 PM Dictated Date/Time: 08/24/2017 3:25 PM
[2017-08-24 15:28] LABS: BASO % 0.7 %; BASO ABS # 0.05 K/uL (0-0.2); EOS % 5.7 %; EOS ABS # 0.39 K/uL (0-0.5); HEMATOCRIT 43.3 % (42-52); HEMOGLOBIN 15.5 g/dL (14.0-18.0); IG# 0.02 K/uL (0.00-0.02); LYMPH % 19.4 %; LYMPH ABS # 1.33 K/uL (1.2-3.4); MEAN CELL VOLUME 89.8 fL (80-100); MEAN CORPUSCULAR HEMOGLOBIN 32.2 pg (25-34); MEAN CORPUSCULAR HGB CONC 35.8 g/dl (32-36); MEAN PLATELET VOLUME 9.1 fL (7.4-10.4); MONO % 8.2 %; MONO ABS # 0.56 K/uL (0.11-0.59); NEUT % 65.7 %; PLATELET COUNT 151 K/uL (130-400); RED CELL DISTRIBUTION WIDTH CV 13.3 % (11.5-14.5); RED CELL DISTRIBUTION WIDTH SD 43.5 fL (36.4-46.3); WHITE BLOOD COUNT 6.85 K/uL (4.8-10.8)
[2017-08-24 15:40] LABS: PTT PATIENT 27.1 SECONDS (21.0-31.0)
[2017-08-24 15:43] LABS: BLOOD UREA NITROGEN 17 mg/dl (7-18); CALCIUM 8.6 mg/dl (8.5-10.1); CARBON DIOXIDE 28 mmol/L (21-32); CREATININE 1.05 mg/dl (0.60-1.40); GLUCOSE 110 mg/dl (70-99); POTASSIUM 3.1 mmol/L (3.5-5.1); SODIUM 140 mmol/L (136-145)
[2017-08-24] MEDS ORDERED: BENZONATATE 100MG CAP PO ONE (17:00)
[2017-08-24] MEDS ORDERED: POTASSIUM CHLORIDE 10 MEQ TABCR PO STA (17:42)
[2017-08-24] MEDS ORDERED: ONDANSETRON INJ 2 MG/ML 2 ML VIAL IV PRN (17:45)
[2017-08-24] MEDS ORDERED: LEVALBUTEROL/IPRATROPIUM NEB INH PRN (17:45)
[2017-08-24] MEDS ORDERED: ALBUTEROL HFA 8 GM INHALER INH PRN (17:45)
[2017-08-24] MEDS ORDERED: POLYETHYLENE (MIRALAX) 17 GM PACK PO PRN (17:45)
[2017-08-24] MEDS ORDERED: NITROGLYCERIN 0.4 MG SL PER TAB CHARGE SL PRN (17:45)
[2017-08-24] MEDS ORDERED: ALUMINUM/MAGNESIUM/SIMETH (MAALOX MAX) 30 ML UDC PO PRN (17:45)
[2017-08-24] MEDS ORDERED: HYDR-3763 PO (17:59)
[2017-08-24] MEDS ORDERED: IPRA1AER2 INH (17:59)
[2017-08-24] MEDS ORDERED: OMEP20CA59 PO (17:59)
--- NOTE | 2017-08-24 18:28 | HISTORY & PHYSICAL EXAMINATION ---
DATE OF ADMISSION: 08/24/2017 CHIEF COMPLAINT: Shortness of breath and cough. 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 The patient was seen in the hospital in December 25 to December 30 of last year with influenza B. He states that since then he is still feeling his cough did not go away and in July he saw his family doctor and was treated with augmentin course of steroids for his bronchitis, but he says his symptoms are not getting better, in last week it is getting worse, minimal activities making short of breath and lot of cough, mostly dry, once in a while with whitish phlegm. Denies any fevers, no runny nose, no earache, no sore throat, no difficulty swallowing. No body aches, no flu-like symptoms. He has some chest pain because of cough. Denies any abdominal pain, no nausea, no vomiting, no diarrhea, no constipation, no blood in the stools. No blood in the urine. Normal bladder movements. Appetite is okay. No swelling in the legs. Currently resting comfortably and hemodynamically stable, but on and off he gets coughing spells. ALLERGIES: MORPHINE. PAST MEDICAL HISTORY: As mentioned above. PAST SURGICAL HISTORY: Colonoscopy repair with nasal septum, laparoscopic hernia repair. MEDICATIONS AT HOME: The patient is on Combivent 1 puff 4 times a day, Phenytoin ER 200 mg p.o. b.i.d., omeprazole 20 mg p.o. b.i.d., folic acid 1 mg p.o. daily, hydrocodone/acetaminophen 10/325 mg 1 or 2 tablets by mouth every 6 hours p.r.n., naproxen 500 mg p.o. b.i.d. with meals but currently not taking, albuterol 2 puffs 4 times a day, and vitamin B12 1000 mcg p.o. daily. FAMILY HISTORY: Significant for father had history of CAD status post stent placement. Mother had CAD. Paternal grandfather has throat cancer. Maternal grandmother had cancer. SOCIAL HISTORY: , no smoking history. Alcohol occasional. No drug use. REVIEW OF SYMPTOMS: As per HPI. Rest of review of symptoms negative. PHYSICAL EXAMINATION: GENERAL: The patient is of moderate build, not in distress. VITAL SIGNS: Temperature 36.8, pulse 87, respiratory rate 20, blood pressure 142/75, oxygen 92% on room air. HEENT: No pallor, no icterus. Pupils equal, round and react to light. NECK: No JVD, no neck masses, no carotid bruits. CARDIOVASCULAR: S1, S2 heard, regular rate and rhythm, no murmur, no gallop. RESPIRATORY SYSTEM: Normal AP diameter. No accessory muscle use. With coughing and taking deep breath, has mild rhonchi bilaterally. No crackles. ABDOMEN: Soft, bowel sounds present. Nontender. No distention. CENTRAL NERVOUS SYSTEM: Cranial nerves II-XII grossly intact. Nonfocal. EXTREMITIES: No edema, no erythema. LABORATORY DATA: WBC 6.8, hemoglobin 15.5, hematocrit 43.3, and platelets 151. Sodium 140, potassium 3.1, chloride 107, bicarbonate 28, BUN 17, creatinine 1, serum glucose 110, and calcium 8.6. Troponin less than 0.015. BNP 85. PT 10.5, INR 1, APTT 27.1. IMAGING DATA: Chest x-ray: No acute process seen. EKG: Shows normal sinus rhythm with rate of 60, right bundle branch block was seen. No significant change from previous EKG. ASSESSMENT AND PLAN: This is a 61-year-old male who presents with ongoing shortness breath and cough. 1. Persistent cough and shortness of breath with possible asthma exacerbation and acute bronchitis. The patient says since last December when he had FLU his cough has not improved and last July had a flare up of his cough and shortness of breath and was treated was treated with Augmentin and prednisone course, but since last , his shortness of breath and cough are getting progressively worsened. Minimal activities making him short of breath. Denies any flu-like symptoms or fevers. Will treat him with IV Solu-Medrol 40 b.i.d., IV azithromycin. Nebs t.i.d. and p.r.n. We will follow the CT scan. Consult pulmonary in the a.m. for any further recommendation. 2. Gastroesophageal reflux disease, could be complicating his asthma. Currently, will continue his Prilosec 20 mg b.i.d. 3. History of epilepsy. Continue home Dilantin. 4. History of back pain. Currently stable, pain medications as needed. 5. Deep venous thrombosis prophylaxis, sequential compression devices and Lovenox. DISPOSITION: Admit to tele floor. Expect to discharge home and follow with family doctor. Level 1 full code. MTDD
--- NOTE | 2017-08-24 18:41 | DIAGNOSTIC IMAGING REPORT ---
(CHEST FOR PE) ANGIO WITH CT DOSE: 369.20 mGy.cm HISTORY: Chest pain dyspnea TECHNIQUE: Multiaxial CT images of the chest were performed following the intravenous administration of contrast to evaluate the pulmonary arteries. Maximal intensity projection images were also obtained. A dose lowering technique was utilized adhering to the principles of ALARA. COMPARISON STUDY: None. FINDINGS: Moderate ectasia thoracic aorta. No evidence for true aneurysm or dissection. Moderate respiratory and somatic motion limiting resolution of the peripheral third order vessels. The study is positive for a filling defect involving the peripheral right lower lobe pulmonary arterial vasculature. This is best seen on transaxial image 103 of 278. Potential additional filling defect of the peripheral left lower lobe pulmonary tear vasculature. No evidence for major central pulmonary embolus. Slight interstitial and peribronchial prominence throughout both hemithoraces. No well-defined consolidative infiltrate. IMPRESSION: 1. Study is positive for at least 2 small filling defects of the peripheral right as well as left lower lobe pulmonary vasculature. 2. No evidence for main or central pulmonary embolus. 3. Slight parenchymal and peribronchial prominence throughout both hemithoraces. The above report was generated using voice recognition software. It may contain grammatical, syntax or spelling errors. Electronically signed by: Ramon Arevalo M.D. 08/24/2017 6:39 PM Dictated Date/Time: 08/24/2017 6:35 PM
[2017-08-24] MEDS ORDERED: OPTIRAY 320 IV PRN (18:45)
[2017-08-24 19:34] VITALS: BP 145/84; PULSE 80; TEMP 37; O2SAT 95; Ht 172.7 cm; Wt 81.4 kg
[2017-08-24 20:00] VITALS: O2SAT 95
[2017-08-24] MEDS ORDERED: LEVALBUTEROL 1.25MG/0.5ML NEB INH PRN (20:00)
[2017-08-24] MEDS ORDERED: IPRATROPIUM BROMIDE NEB SOLN 0.02% 2.5 ML VIAL INH PRN (20:00)
[2017-08-24 21:05] VITALS: PULSE 68; O2SAT 96
[2017-08-24] MEDS: LEVALBUTEROL 1.25MG/3ML NEB INH SCH (21:05)
[2017-08-24] MEDS: AZITHROMYCIN IV 500 MG in DEXTROSE 5% 250ML 250 ML IV SCH (21:11)
[2017-08-24] MEDS: ACETAMINOPHEN 325 MG TAB PO PRN (21:14)
[2017-08-24] MEDS: PANTOprazole SOD 40 MG TAB PO SCH (21:31)
[2017-08-24] MEDS: PHENYTOIN SODIUM ER 100 MG CAP PO SCH (21:32)
[2017-08-24] MEDS: ENOXAPARIN 40 MG/0.4 ML SYR SC SCH (21:33)
[2017-08-24 23:49] VITALS: BP 126/85; PULSE 86; TEMP 36.6; O2SAT 95
[2017-08-24] MEDS: GUAIFENESIN/DEXTROM SYRUP 100MG/10MG 5ML UDC PO PRN (23:50)
[2017-08-24] MEDS: HYDROCODONE/ACETAMI 10/325 TAB PO PRN (23:50)
[2017-08-24 23:59] VITALS: O2SAT 95
[2017-08-25] VITALS (10 sets, daily range): BP systolic 102–129; BP diastolic 67–86; PULSE 61–83; TEMP 36.4–36.9; O2SAT 91–97
[2017-08-25] MEDS: METHYLPREDNISOLONE IV 40 MG in SYRINGE 0 ML IV SCH ×2 (03:59→16:46)
[2017-08-25 05:50] LABS: BASO % 0.6 %; BASO ABS # 0.03 K/uL (0-0.2); EOS % 3.8 %; HEMATOCRIT 40.9 % (42-52); HEMOGLOBIN 14.6 g/dL (14.0-18.0); IG# 0.02 K/uL (0.00-0.02); LYMPH % 26.3 %; LYMPH ABS # 1.39 K/uL (1.2-3.4); MEAN CELL VOLUME 90.1 fL (80-100); MEAN CORPUSCULAR HEMOGLOBIN 32.2 pg (25-34); MEAN CORPUSCULAR HGB CONC 35.7 g/dl (32-36); MEAN PLATELET VOLUME 9.4 fL (7.4-10.4); MONO % 7.4 %; MONO ABS # 0.39 K/uL (0.11-0.59); NEUT % 61.5 %; NEUT ABS # 3.26 K/uL (1.4-6.5); PLATELET COUNT 161 K/uL (130-400); RED CELL DISTRIBUTION WIDTH CV 13.6 % (11.5-14.5); RED CELL DISTRIBUTION WIDTH SD 44.8 fL (36.4-46.3); WHITE BLOOD COUNT 5.29 K/uL (4.8-10.8)
[2017-08-25 06:29] LABS: CALCIUM 8.5 mg/dl (8.5-10.1); CREATININE 0.82 mg/dl (0.60-1.40)
[2017-08-25] MEDS: LEVALBUTEROL 1.25MG/3ML NEB INH SCH ×3 (07:22→19:21)
[2017-08-25] MEDS ORDERED: NON-FORMULARY MEDICATION (Omeprazole (Prilosec) 20 MG) PO SCH (09:00)
[2017-08-25] MEDS: CYANOCOBALAMIN 500 MCG TAB (VIT B-12) PO SCH (09:30)
[2017-08-25] MEDS: PANTOprazole SOD 40 MG TAB PO SCH ×2 (09:31→19:48)
[2017-08-25] MEDS: PHENYTOIN SODIUM ER 100 MG CAP PO SCH ×2 (09:31→19:48)
[2017-08-25] MEDS: GUAIFENESIN/DEXTROM SYRUP 100MG/10MG 5ML UDC PO PRN ×3 (09:31→22:36)
[2017-08-25] MEDS: ACETAMINOPHEN 325 MG TAB PO PRN (09:37)
[2017-08-25] MEDS: METOCLOPRAMIDE HCL 10 MG TAB PO SCH ×3 (12:10→19:48)
--- NOTE | 2017-08-25 12:45 | DIAGNOSTIC IMAGING REPORT ---
CT SCAN OF THE PARANASAL SINUSES CLINICAL HISTORY: Chronic sinusitis. COMPARISON STUDY: CT scan of the neck dated 10/04/2016. TECHNIQUE: High-resolution CT scan of the paranasal sinuses is performed. Images are reviewed in the axial, sagittal, and coronal planes. IV contrast was not administered for this examination. A dose lowering technique was utilized adhering to the principles of ALARA. CT DOSE: 610.06 mGy.cm FINDINGS: Maxillary antra: There is mild nodular mucosal thickening seen bilaterally. Anterior ethmoid sinuses: Trace mucosal thickening is seen bilaterally. Posterior ethmoid sinuses: Trace mucosal thickening is seen bilaterally. Sphenoid sinuses: Mild mucosal thickening is seen on the right. Trace mucosal thickening is seen on the left. Frontal sinuses: Mild mucosal thickening is seen bilaterally. Ostiomeatal complexes: Patent bilaterally. Frontoethmoidal and sphenoethmoidal recesses: The frontoethmoidal recesses are patent, with narrowing on the right secondary to mucosal thickening. The sphenoethmoidal recesses are patent, with mild narrowing the right secondary to mucosal thickening. Carotid arteries: The carotid arteries are protuberant but covered and without septal attachments. Ethmoid roofs: There is slightly asymmetric elevation of the right ethmoid roof as compared to the left. Nasal turbinates: Normal in appearance. Nasal septum: There is leftward deviation of the bony nasal septum. Optic nerves: Covered. Orbits: The bony orbits are intact. Orbital contents are normal in appearance. Calvarium: The imaged calvarium is normal in appearance Mastoid air cells: Well pneumatized. Brain parenchyma: Partially visualized brain parenchyma is within normal limits. IMPRESSION: Mild paranasal sinus disease as above. Electronically signed by: Jace Madison M.D. 08/25/2017 12:44 PM Dictated Date/Time: 08/25/2017 12:40 PM
--- NOTE | 2017-08-25 13:12 | DIAGNOSTIC IMAGING REPORT ---
BILATERAL LOWER EXTREMITY VENOUS DOPPLER HISTORY: Shortness of breath. rule out DVT COMPARISON STUDY: None. FINDINGS: There is normal compressibility, flow, and augmentation within the bilateral lower extremity deep venous systems. IMPRESSION: No DVT within the right or left lower extremity. Electronically signed by: Amandeep Sky M.D. 08/25/2017 1:11 PM Dictated Date/Time: 08/25/2017 1:11 PM
--- NOTE | 2017-08-25 16:17 | Pulmonary Consultation ---
History General Date of Service: Aug 25, 2017. Stated Complaint: Acute Bronchitis, Shortness Of Breath HPI The patient is a 61 year old male who presents to [facility] with complaints of Acute Bronchitis, Shortness Of Breath. The patient's primary care provider is Howie Hendricks D.O.. Historian: patient Onset: other (several months) Severity: moderate Complaint Status: persistent Review of Systems Constitutional: reports: weakness Eyes: reports: no symptoms ENT: reports: rhinorrhea Cardiovascular: reports: no symptoms Respiratory: reports: cough, orthopnea, shortness of breath Gastrointestinal: reports: no symptoms, other (heartburn) Musculoskeletal: reports: no symptoms Integumentary: reports: no symptoms Neurologic: reports: no symptoms Psychiatric: reports: no symptoms Allergic / Immunologic: no symptoms Past Medical History Past Medical History: Noted in the H&P, denies any history of coronary artery disease, does not have any history of respiratory disease, he did have a significant workup in the form area, 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 Family History FH: heart disease FHx: gallbladder disease Hypertension Social History Hx Tobacco Use In Past Year?: No Smoking Status: Never Smoker Occupational Status: employed Allergies Coded Allergies: Morphine (Unverified Allergy, Unknown, IV, RED STREAKS UP ARM, 08/24/17) Current Medications Reported Home Medications Medications Dose Route/Sig Max Daily Dose Days Date Category Vicodin Hp (10MG/300MG) (Hydrocodon/Acetaminophen 10MG/300MG) 1 Tab Tab 1 Tab PO Q6 PRN 08/24/17 Rx Combivent Respimat (Ipratropium-Albuterol) 1 Aer Aer 1 Puffs INH QID 08/24/17 Rx Prilosec (Omeprazole) 20 Mg Capcr 20 Mg PO BID 08/24/17 Rx Ventolin Hfa (Albuterol) 200 Puffs/27067 Mcg Aers 2 Puffs INH Q4 PRN 12/30/16 Rx B12 (Cyanocobalamin) 1,000 Mcg Tab 1 Tab PO DAILY 10/04/16 Reported Dilantin (Phenytoin Sodium Extended) 30 Mg Cap 200 Mg PO BID 10/04/16 Reported Folvite (Folic Acid) 1 Mg Tab 1 Tab PO DAILY 90 10/04/16 Reported Physical Physical Exam Vital Signs: Date Time Temp Pulse Resp B/P (MAP) Pulse Ox O2 Delivery O2 Flow Rate FiO2 08/25/17 15:16 36.4 73 20 121/77 (92) 96 Room Air 08/25/17 14:18 71 16 97 Room Air 08/25/17 13:35 36.9 72 16 126/80 (95) 91 08/25/17 08:00 Room Air 08/25/17 08:00 36.4 83 20 129/86 (100) Room Air 08/25/17 07:22 72 16 94 Room Air 08/25/17 05:58 67 16 96 Room Air 08/25/17 04:02 36.8 61 102/67 (79) 93 Room Air 08/25/17 04:00 95 Room Air 08/24/17 23:59 95 Room Air 08/24/17 23:49 36.6 86 126/85 (99) 95 Room Air 08/24/17 21:05 68 16 96 Room Air 08/24/17 20:00 95 Room Air 08/24/17 19:34 37.0 80 20 145/84 95 Room Air 08/24/17 17:50 87 20 92 Room Air 08/24/17 16:16 82 20 142/75 92 Room Air General Appearance: WELL-APPEARING Eyes: PERRLA, NO DISCHARGE ENT: other (deviated septum noted, no nasal congestion but he does have significant postnasal drip.) Respiratory: BREATH SOUNDS NORMAL Cardiovasular: REGULAR RATE/RHYTHM, NORMAL S1S2, NO M/G/R Abdomen: NON TENDER, NO REBOUND, NO MASSES Lower Extremities: NO EDEMA Psychiatric: NORMAL AFFECT Diagnostics Labs Results Past 24 Hours Test 08/25/17 05:08 08/25/17 11:05 Range/Units White Blood Count 5.29 4.8-10.8 K/uL Red Blood Count 4.54 4.7-6.1 M/uL Hemoglobin 14.6 14.0-18.0 g/dL Hematocrit 40.9 42-52 % Mean Corpuscular Volume 90.1 80-100 fL Mean Corpuscular Hemoglobin 32.2 25-34 pg Mean Corpuscular Hemoglobin Concent 35.7 32-36 g/dl Platelet Count 161 130-400 K/uL Mean Platelet Volume 9.4 7.4-10.4 fL Neutrophils (%) (Auto) 61.5 % Lymphocytes (%) (Auto) 26.3 % Monocytes (%) (Auto) 7.4 % Eosinophils (%) (Auto) 3.8 % Basophils (%) (Auto) 0.6 % Neutrophils # (Auto) 3.26 1.4-6.5 K/uL Lymphocytes # (Auto) 1.39 1.2-3.4 K/uL Monocytes # (Auto) 0.39 0.11-0.59 K/uL Eosinophils # (Auto) 0.20 0-0.5 K/uL Basophils # (Auto) 0.03 0-0.2 K/uL RDW Standard Deviation 44.8 36.4-46.3 fL RDW Coefficient of Variation 13.6 11.5-14.5 % Immature Granulocyte % (Auto) 0.4 % Immature Granulocyte # (Auto) 0.02 0.00-0.02 K/uL Sodium Level 141 136-145 mmol/L Potassium Level 4.0 3.5-5.1 mmol/L Chloride Level 110 98-107 mmol/L Carbon Dioxide Level 25 21-32 mmol/L Anion Gap 6.0 3-11 mmol/L Blood Urea Nitrogen 14 7-18 mg/dl Creatinine 0.82 0.60-1.40 mg/dl Est Creatinine Clear Calc Drug Dose 90.3 ml/min Estimated GFR () 109.8 Estimated GFR (Non- 94.8 BUN/Creatinine Ratio 16.5 10-20 Random Glucose 93 70-99 mg/dl Calcium Level 8.5 8.5-10.1 mg/dl Magnesium Level 2.1 1.8-2.4 mg/dl Microbiology Results 08/24/17 MRSA DNA Surveillance Screen - Final, Complete Specimen Negative for MRSA by DNA Probe Radiology Interpretation: CXR NORMAL (chest x-ray and CAT scan both were reviewed including CAT scan of the sinuses,), other (chest x-ray with hyperinflated lungs, CAT scan of the sinuses with mild sinusitis, CAT scan of the chest with movement artifact.) Impression Assessment and Plan #1 given the patient's exposure to 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 I do not see any evidence of asbestos exposure on a CAT scan of chest. 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 #2 there is a for this patient cough is significant history of GERD which was taken omeprazole 40 mg twice a day. He does have also significant history of sinusitis status post sinus surgery 20 years ago for septal deviation. #3 cannot rule out the possibility of COPD. Plan: #[address] was ordered and I have reviewed myself. #2 CAT scan of the chest was without high-resolution collimation, I have reviewed it with the radiologist and he does not feel there is a significant evidence of interstitial lung disease. #3 evaluation of COPD with pulmonary function test as an outpatient. #4 aggressive treatment of GERD with twice-daily PPI at high dose as well as Reglan 10 mg before meals and at bedtime. #5 continue bronchodilators and steroids for now. #6 although the patient had a history of influenza a he did have also viral infection back in December 2016, the prolonged effect were unlikely to be the cause of his presentation. #7 agree with transferring the patient to [facility] floor. #8 obtain hypersensitivity panel. We'll follow. Thank you for your kind referral.
--- NOTE | 2017-08-25 19:22 | Progress Note ---
Progress Note Date of Service Aug 25, 2017. Progress Note Subjective: Patient has been coughing and feeling throat discomfort. Physical Exam General: coughing, breathing on room air Heart: RRR Lungs: CTABL, no acute wheezing Abdomen: soft, nontender, + bowel sounds Extremities: no edema This is a 61-year-old male who presents with ongoing shortness breath and cough. 1. Persistent cough and shortness of breath Started on IV Solu-Medrol 40 b.i.d., IV azithromycin. Nebs t.i.d. 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 I do not see any evidence of asbestos exposure on a CAT scan of chest. 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 #2 there is a for this patient cough is significant history of GERD which was taken omeprazole 40 mg twice a day. He does have also significant history of sinusitis status post sinus surgery 20 years ago for septal deviation. #3 cannot rule out the possibility of COPD." - sinus CT: Mild paranasal sinus disease -CAT scan of the chest -no significant evidence of interstitial lung disease. - evaluation of COPD with pulmonary function test as an outpatient. -treatment of GERD with twice-daily PPI at high dose as well as Reglan 10 mg before meals and at bedtime. -continue bronchodilators and steroids for now. -although the patient had a history of influenza a he did have also viral infection back in December 2016, the prolonged effect were unlikely to be the cause of his presentation. -obtain hypersensitivity panel. History of epilepsy. Continue home Dilantin. History of back pain. Currently stable, pain medications as needed. Deep venous thrombosis prophylaxis, sequential compression devices and Lovenox.
[2017-08-25] MEDS: HYDROCODONE/ACETAMI 10/325 TAB PO PRN (19:46)
[2017-08-25] MEDS: ENOXAPARIN 40 MG/0.4 ML SYR SC SCH (19:48)
[2017-08-25] MEDS: FEXOFENADINE 60MG/PSEUDOEPHEDRINE 120MG TAB PO SCH (19:48)
[2017-08-25] MEDS: AZITHROMYCIN IV 500 MG in DEXTROSE 5% 250ML 250 ML IV SCH (20:26)
[2017-08-26] MEDS: METHYLPREDNISOLONE IV 40 MG in SYRINGE 0 ML IV SCH (04:31)
[2017-08-26] MEDS: GUAIFENESIN/DEXTROM SYRUP 100MG/10MG 5ML UDC PO PRN (04:33)
[2017-08-26 05:54] LABS: BASO % 1.5 %; BASO ABS # 0.07 K/uL (0-0.2); EOS % 6.4 %; HEMATOCRIT 41.5 % (42-52); HEMOGLOBIN 14.5 g/dL (14.0-18.0); IG# 0.01 K/uL (0.00-0.02); LYMPH % 30.6 %; LYMPH ABS # 1.44 K/uL (1.2-3.4); MEAN CELL VOLUME 91.2 fL (80-100); MEAN CORPUSCULAR HEMOGLOBIN 31.9 pg (25-34); MEAN CORPUSCULAR HGB CONC 34.9 g/dl (32-36); MEAN PLATELET VOLUME 9.2 fL (7.4-10.4); MONO % 7.9 %; MONO ABS # 0.37 K/uL (0.11-0.59); NEUT % 53.4 %; NEUT ABS # 2.52 K/uL (1.4-6.5); PLATELET COUNT 145 K/uL (130-400); RED CELL DISTRIBUTION WIDTH CV 13.8 % (11.5-14.5); RED CELL DISTRIBUTION WIDTH SD 45.6 fL (36.4-46.3); WHITE BLOOD COUNT 4.71 K/uL (4.8-10.8)
[2017-08-26 06:26] LABS: CALCIUM 8.2 mg/dl (8.5-10.1); CREATININE 0.83 mg/dl (0.60-1.40); POTASSIUM 3.7 mmol/L (3.5-5.1)
[2017-08-26] MEDS: LEVALBUTEROL 1.25MG/3ML NEB INH SCH ×2 (07:12→14:24)
[2017-08-26 07:13] VITALS: PULSE 77; O2SAT 96
[2017-08-26] MEDS: METOCLOPRAMIDE HCL 10 MG TAB PO SCH ×2 (07:15→12:12)
[2017-08-26 07:55] VITALS: BP 109/71; PULSE 73; TEMP 36.5; O2SAT 92
[2017-08-26] MEDS ORDERED: FLUTICASONE PROPIONATE NA SPR 16 GM BTL SCH (08:00)
[2017-08-26] MEDS: FEXOFENADINE 60MG/PSEUDOEPHEDRINE 120MG TAB PO SCH (08:38)
[2017-08-26] MEDS: PANTOprazole SOD 40 MG TAB PO SCH (08:38)
[2017-08-26] MEDS: CYANOCOBALAMIN 500 MCG TAB (VIT B-12) PO SCH (08:38)
[2017-08-26] MEDS: PHENYTOIN SODIUM ER 100 MG CAP PO SCH (08:38)
[2017-08-26] MEDS ORDERED: RBTDMUDC5 PO (14:13)
[2017-08-26] MEDS ORDERED: FEXO5TAB2 PO (14:13)
[2017-08-26] MEDS ORDERED: FLNIN (14:13)
[2017-08-26] MEDS ORDERED: PRED20TA2 PO (14:16)
[2017-08-26] MEDS ORDERED: NEBMAC (14:17)
[2017-08-26] MEDS ORDERED: AZIT-57 PO (14:19)
[2017-08-26] MEDS ORDERED: IPRASOL4 INH (14:19)
[2017-08-26 14:25] VITALS: PULSE 99; O2SAT 96
--- NOTE | 2017-08-26 14:31 | Progress Note ---
Internal Med Progress Note Date of Service: Aug 26, 2017. Provider Documentation: SUBJECTIVE: Patient has been coughing and feeling throat discomfort. OBJECTIVE: Physical Exam General: breathing on room air Neck: trachea midline, no JVD Heart: RRR Lungs: CTABL, no acute wheezing Abdomen: soft, nontender, + bowel sounds Extremities: no edema ASSESSMENT & PLAN: This is a 61-year-old male who presents with ongoing shortness breath and cough. Patient was Started on IV Solu-Medrol 40 b.i.d., IV azithromycin. Nebs t.i.d. and p.r.n Imaging: -sinus CT: Mild paranasal sinus disease -CAT scan of the chest -no significant evidence of interstitial lung disease. 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 I do not see any evidence of asbestos exposure on a CAT scan of chest. 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 #2 there is a for this patient cough is significant history of GERD which was taken omeprazole 40 mg twice a day. He does have also significant history of sinusitis status post sinus surgery 20 years ago for septal deviation. #3 cannot rule out the possibility of COPD." Patient to be discharged home with prescriptions for nebulizer machine, albuterol/ipratropium nebulizer treatments, prednisone taper, oral azithromycin , Krissy, Fluticasone nasal spray, Guaifenesin for possible COPD and cough symptoms; other differentials include bronchitis or asthma Treat possible Gastric reflux disease (GERD) with twice-daily PPI at high dose as well as Reglan 10 mg before meals and at bedtime. Patient has appointment with primary care 09/01/2017 2:40 PM Howie Cullen DO [facility] [phone] recommend that patient be evaluated for COPD with pulmonary function test as an outpatient. recommend that primary care doctor for hypersensitivity panels sent on 08/25/17 recommend that patient be referred to ENT. An appontment has been made for 2017 1:30 PM José Figueroa DO Otolaryngology [facility] History of epilepsy without seizure on this hospital admission. Continue home V[facility]ctor appointment number [phone] Vital Signs: Date Time Temp Pulse Resp B/P (MAP) Pulse Ox O2 Delivery O2 Flow Rate FiO2 08/26/17 14:25 99 16 96 Room Air 08/26/17 08:45 Room Air 08/26/17 07:55 36.5 73 18 109/71 (84) 92 Room Air 08/26/17 07:13 77 15 96 Room Air 08/26/17 00:34 Room Air 08/25/17 23:28 36.6 78 20 118/78 (91) 93 Room Air 08/25/17 21:00 Room Air 08/25/17 19:22 66 16 96 Room Air 08/25/17 16:10 Room Air 08/25/17 15:16 36.4 73 20 121/77 (92) 96 Room Air Lab Results: Results Past 24 Hours Test 08/26/17 05:35 Range/Units White Blood Count 4.71 4.8-10.8 K/uL Red Blood Count 4.55 4.7-6.1 M/uL Hemoglobin 14.5 14.0-18.0 g/dL Hematocrit 41.5 42-52 % Mean Corpuscular Volume 91.2 80-100 fL Mean Corpuscular Hemoglobin 31.9 25-34 pg Mean Corpuscular Hemoglobin Concent 34.9 32-36 g/dl Platelet Count 145 130-400 K/uL Mean Platelet Volume 9.2 7.4-10.4 fL Neutrophils (%) (Auto) 53.4 % Lymphocytes (%) (Auto) 30.6 % Monocytes (%) (Auto) 7.9 % Eosinophils (%) (Auto) 6.4 % Basophils (%) (Auto) 1.5 % Neutrophils # (Auto) 2.52 1.4-6.5 K/uL Lymphocytes # (Auto) 1.44 1.2-3.4 K/uL Monocytes # (Auto) 0.37 0.11-0.59 K/uL Eosinophils # (Auto) 0.30 0-0.5 K/uL Basophils # (Auto) 0.07 0-0.2 K/uL RDW Standard Deviation 45.6 36.4-46.3 fL RDW Coefficient of Variation 13.8 11.5-14.5 % Immature Granulocyte % (Auto) 0.2 % Immature Granulocyte # (Auto) 0.01 0.00-0.02 K/uL Sodium Level 140 136-145 mmol/L Potassium Level 3.7 3.5-5.1 mmol/L Chloride Level 107 98-107 mmol/L Carbon Dioxide Level 28 21-32 mmol/L Anion Gap 5.0 3-11 mmol/L Blood Urea Nitrogen 16 7-18 mg/dl Creatinine 0.83 0.60-1.40 mg/dl Est Creatinine Clear Calc Drug Dose 89.3 ml/min Estimated GFR () 109.3 Estimated GFR (Non- 94.3 BUN/Creatinine Ratio 18.8 10-20 Random Glucose 97 70-99 mg/dl Calcium Level 8.2 8.5-10.1 mg/dl Magnesium Level 2.1 1.8-2.4 mg/dl
[2017-08-26] MEDS ORDERED: PRT40 PO (14:58)
[2017-08-26] MEDS ORDERED: RGL10 PO (14:58)
--- NOTE | 2017-08-26 15:04 | Discharge Instructions ---
Discharge Instructions Date of Service Aug 26, 2017. Admission Reason for Admission: Acute Bronchitis, Shortness Of Breath Discharge Discharge Diagnosis / Problem: bronchitis, asthma, possible COPD, GERD Discharge Goals Goal(s): Improve function, Increase independence, Improve disease control Activity Recommendations Activity Limitations: per Instructions/Follow-up section Shower/Bathe: no limitations . Instructions / Follow-Up Instructions / Follow-Up This is a 61-year-old male who presents with ongoing shortness breath and cough. Patient was Started on IV Solu-Medrol 40 b.i.d., IV azithromycin. Nebs t.i.d. and p.r.n Imaging: -sinus CT: Mild paranasal sinus disease -CAT scan of the chest -no significant evidence of interstitial lung disease. 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 I do not see any evidence of asbestos exposure on a CAT scan of chest. 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 #2 there is a for this patient cough is significant history of GERD which was taken omeprazole 40 mg twice a day. He does have also significant history of sinusitis status post sinus surgery 20 years ago for septal deviation. #3 cannot rule out the possibility of COPD." Patient to be discharged home with prescriptions for nebulizer machine, albuterol/ipratropium nebulizer treatments, prednisone taper, oral azithromycin , Krissy, Fluticasone nasal spray, Guaifenesin for possible COPD and cough symptoms; other differentials include bronchitis or asthma Treat possible Gastric reflux disease (GERD) with twice-daily PPI at high dose as well as Reglan 10 mg before meals and at bedtime. Patient has appointment with primary care 09/01/2017 2:40 PM Howie Cullen DO [facility] [phone] recommend that patient be evaluated for COPD with pulmonary function test as an outpatient. recommend that primary care doctor for hypersensitivity panels sent on 08/25/17 recommend that patient be referred to ENT. An appontment has been made for 2017 1:30 PM José Figueroa DO Otolaryngology [facility] History of epilepsy without seizure on this hospital admission. Continue home Dilantin. Renee appointment number [phone] Current Hospital Diet Patient's current hospital diet: AHA Diet (Heart Healthy) Discharge Diet Recommended Diet: AHA Diet (Heart Healthy) Pending Studies Studies pending at discharge: yes List of pending studies: hypersensitivity labs Laboratory Results 08/26/17 05:35 Red Blood Count 4.55, Mean Corpuscular Volume 91.2, Mean Corpuscular Hemoglobin 31.9, Mean Corpuscular Hemoglobin Concent 34.9, Mean Platelet Volume 9.2, Neutrophils (%) (Auto) 53.4, Lymphocytes (%) (Auto) 30.6, Monocytes (%) (Auto) 7.9, Eosinophils (%) (Auto) 6.4, Basophils (%) (Auto) 1.5, Neutrophils # (Auto) 2.52, Lymphocytes # (Auto) 1.44, Monocytes # (Auto) 0.37, Eosinophils # (Auto) 0.30, Basophils # (Auto) 0.07 08/26/17 05:35 Test 08/24/17 15:10 08/25/17 11:05 08/26/17 05:35 Prothrombin Time 10.5 SECONDS (9.0-12.0) Prothromb Time International Ratio 1.0 (0.9-1.1) Activated Partial Thromboplast Time 27.1 SECONDS (21.0-31.0) Partial Thromboplastin Ratio 1.0 Troponin I < 0.015 ng/ml (0-0.045) Pro-B-Type Natriuretic Peptide 85 pg/ml (0-900) White Blood Count 4.71 K/uL (4.8-10.8) Red Blood Count 4.55 M/uL (4.7-6.1) Hemoglobin 14.5 g/dL (14.0-18.0) Hematocrit 41.5 % (42-52) Mean Corpuscular Volume 91.2 fL (80-100) Mean Corpuscular Hemoglobin 31.9 pg (25-34) Mean Corpuscular Hemoglobin Concent 34.9 g/dl (32-36) Platelet Count 145 K/uL (130-400) Mean Platelet Volume 9.2 fL (7.4-10.4) Neutrophils (%) (Auto) 53.4 % Lymphocytes (%) (Auto) 30.6 % Monocytes (%) (Auto) 7.9 % Eosinophils (%) (Auto) 6.4 % Basophils (%) (Auto) 1.5 % Neutrophils # (Auto) 2.52 K/uL (1.4-6.5) Lymphocytes # (Auto) 1.44 K/uL (1.2-3.4) Monocytes # (Auto) 0.37 K/uL (0.11-0.59) Eosinophils # (Auto) 0.30 K/uL (0-0.5) Basophils # (Auto) 0.07 K/uL (0-0.2) RDW Standard Deviation 45.6 fL (36.4-46.3) RDW Coefficient of Variation 13.8 % (11.5-14.5) Immature Granulocyte % (Auto) 0.2 % Immature Granulocyte # (Auto) 0.01 K/uL (0.00-0.02) Anion Gap 5.0 mmol/L (3-11) Est Creatinine Clear Calc Drug Dose 89.3 ml/min Estimated GFR () 109.3 Estimated GFR (Non- 94.3 BUN/Creatinine Ratio 18.8 (10-20) Calcium Level 8.2 mg/dl (8.5-10.1) Magnesium Level 2.1 mg/dl (1.8-2.4) Date/Time Source Procedure Growth Status 08/24/17 21:15 Nasal MRSA DNA Surveillance Screen - Final Specimen Negative for MRSA by DNA Probe Complete Medical Emergencies . Who to Call and When: Medical Emergencies: If at any time you feel your situation is an emergency, please call 911 immediately. . Non-Emergent Contact Non-Emergency issues call your: Primary Care Provider Call Non-Emergent contact if: your pain is not controlled, you have any medication questions . . "Provider Documentation" section prepared by Sushant Love. . VTE Core Measure Inpt VTE Proph given/why not?: SCD's
--- NOTE | 2017-08-26 15:06 | Discharge Summary ---
Discharge Summary Date of Service Aug 26, 2017. Discharge Summary Admission Date: Aug 24, 2017 at 17:51 Discharge Date: Aug 26, 2017 Discharge Disposition: Home Principal Diagnosis: asthma, bronchitis, possible COPD, GERD Consultations: Pulmonary Medication Reconciliation New Medications: Ipratropium-Albuterol (Duoneb) 3 Ml Nebu 1 TREATMENT INH Q4H PRN for Shortness of Breath for 30 Days, #180 INHA Nebulizer Machine (Home Use) (Nebulizer Machine (Home Use) ) Mis EA N/A UD, #1 Prednisone (Prednisone Tab) 20 Mg Tab 0 PO DAILY for 5 Days, #7 TAB 2 TABS DAILY FOR 2 DAYS, THEN 1 TAB DAILY FOR 2 DAYS, THEN 1/2 TAB DAILY FOR 2 DAYS. Azithromycin (Azithromycin) 250 Mg Tab 500 MG PO DAILY@2000 for 5 Days, #5 TAB Fexofenadine-Pseudoephedrine (Krissy-D 12 Hour Allergy) 1 Tab Tab 1 TAB PO BID for 6 Days, #12 TAB Fluticasone Propionate (Fluticasone Propionate) 50 Mcg/Act Spr 2 SPRAYS NA DAILY for 6 Days, #1 BTL Guaifenesin/Dextromethorphan (Guaifenesin-Dm 100-10 mg/5Ml) 5 Ml/Cup Syrp 5 ML PO Q6H PRN for Cough for 6 Days, #1 BTL Metoclopramide HCl (Metoclopramide HCl) 10 Mg Tab 10 MG PO ACHS for 10 Days, #20 TAB take once in morning and once at night with meals Pantoprazole (Pantoprazole Sodium) 40 Mg Tab 40 MG PO BID for 30 Days, #60 TAB Continued Medications: Albuterol Hfa (Ventolin Hfa) 200 Puffs/58326 Mcg Aers 2 PUFFS INH Q4 PRN for SOB/Wheezing, #1 INHALER 1 Refill Cyanocobalamin (B12) 1,000 Mcg Tab 1 TAB PO DAILY Folic Acid (Folvite) 1 Mg Tab 1 TAB PO DAILY for 90 Days, #90 TAB 1 Refill Hydrocodon/Acetaminophen 10MG/300MG (Vicodin Hp (10MG/300MG)) 1 Tab Tab 1 TAB PO Q6 PRN for Pain, #1 TAB Ipratropium-Albuterol (Combivent Respimat) 1 Aer Aer 1 PUFFS INH QID, #1 INH Phenytoin Sodium Extended (Dilantin) 30 Mg Cap 200 MG PO BID, CAP Discontinued Medications: Omeprazole (Prilosec) 20 Mg Capcr 20 MG PO BID, #30 CAP Admission Information HPI (per Admitting provider): CHIEF COMPLAINT: Shortness of breath and cough. 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 The patient was seen in the hospital in December 25 to December 30 of last year with influenza B. He states that since then he is still feeling his cough did not go away and in July he saw his family doctor and was treated with augmentin course of steroids for his bronchitis, but he says his symptoms are not getting better, in last week it is getting worse, minimal activities making short of breath and lot of cough, mostly dry, once in a while with whitish phlegm. Denies any fevers, no runny nose, no earache, no sore throat, no difficulty swallowing. No body aches, no flu-like symptoms. He has some chest pain because of cough. Denies any abdominal pain, no nausea, no vomiting, no diarrhea, no constipation, no blood in the stools. No blood in the urine. Normal bladder movements. Appetite is okay. No swelling in the legs. Currently resting comfortably and hemodynamically stable, but on and off he gets coughing spells. Physical Exam (per Admitting): PHYSICAL EXAMINATION: GENERAL: The patient is of moderate build, not in distress. VITAL SIGNS: Temperature 36.8, pulse 87, respiratory rate 20, blood pressure 142/75, oxygen 92% on room air. HEENT: No pallor, no icterus. Pupils equal, round and react to light. NECK: No JVD, no neck masses, no carotid bruits. CARDIOVASCULAR: S1, S2 heard, regular rate and rhythm, no murmur, no gallop. RESPIRATORY SYSTEM: Normal AP diameter. No accessory muscle use. With coughing and taking deep breath, has mild rhonchi bilaterally. No crackles. ABDOMEN: Soft, bowel sounds present. Nontender. No distention. CENTRAL NERVOUS SYSTEM: Cranial nerves II-XII grossly intact. Nonfocal. EXTREMITIES: No edema, no erythema. Hospital Course This is a 61-year-old male who presents with ongoing shortness breath and cough. Patient was Started on IV Solu-Medrol 40 b.i.d., IV azithromycin. Nebs t.i.d. and p.r.n Imaging: -sinus CT: Mild paranasal sinus disease -CAT scan of the chest -no significant evidence of interstitial lung disease. 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 I do not see any evidence of asbestos exposure on a CAT scan of chest. 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 #2 there is a for this patient cough is significant history of GERD which was taken omeprazole 40 mg twice a day. He does have also significant history of sinusitis status post sinus surgery 20 years ago for septal deviation. #3 cannot rule out the possibility of COPD." Patient to be discharged home with prescriptions for nebulizer machine, albuterol/ipratropium nebulizer treatments, prednisone taper, oral azithromycin , Krissy, Fluticasone nasal spray, Guaifenesin for possible COPD and cough symptoms; other differentials include bronchitis or asthma Treat possible Gastric reflux disease (GERD) with twice-daily PPI at high dose as well as Reglan 10 mg before meals and at bedtime. Patient has appointment with primary care 09/01/2017 2:40 PM Howie Cullen DO [facility] [phone] recommend that patient be evaluated for COPD with pulmonary function test as an outpatient. recommend that primary care doctor for hypersensitivity panels sent on 08/25/17 recommend that patient be referred to ENT. An appontment has been made for 2017 1:30 PM José Figueroa DO Otolaryngology [facility] History of epilepsy without seizure on this hospital admission. Continue home Dilantin. Víctor appointment number [phone] Total time spent on discharge = 60 minutes This includes examination of the patient, discharge planning, medication reconciliation, and communication with other providers. Discharge Instructions see above
[2017-08-26 15:46] VITALS: BP 109/71; PULSE 99; TEMP 36.5; O2SAT 96
[2017-08-26] MEDS ORDERED: AZITHROMYCIN 250 MG TAB PO SCH (20:00)
[2017-08-26] MEDS ORDERED: DOCUSATE SODIUM 100 MG CAP PO SCH (20:00)
== END 2017-08-26 16:30 | disposition home or self-care (01) | DRG 203 ==
LOC: C.EDB 14:09 → C.MSICU 17:51 → ENRESERV 18:12 → C.4E 08-25 13:21
PROVIDERS: ADMIT Family Medicine; ATTEND Hospitalist
DX: J45.909 Unspecified asthma, uncomplicated (principal); J44.9 Chronic obstructive pulmonary disease, unspecified; K21.9 Gastro-esophageal reflux disease without esophagitis; E87.6 Hypokalemia; I45.10 Unspecified right bundle-branch block; G40.909 Epilepsy, unspecified, not intractable, without status epilepticus; Z87.01 Personal history of pneumonia (recurrent); Z82.49 Family history of ischemic heart disease and other diseases of the circulatory system

== ENCOUNTER → 2018-03-16 | Outpatient (CLI) | payer OTHER ==
[~2018-03-16] MED LIST changes: +AZIT-57 PO; +FEXO5TAB2 PO; +FLNIN; -OMEP20CA59 PO; +PANT1TAB4 PO; +RBTDMUDC5 PO; +RGL10 PO
--- NOTE | 2018-03-16 12:43 | DIAGNOSTIC IMAGING REPORT ---
TWO VIEW CHEST CLINICAL HISTORY: Cough. FINDINGS: PA and lateral chest radiographs are compared to chest x-ray and chest CT dated 08/24/2017. The cardiomediastinal silhouette is unremarkable. The lungs and pleural spaces are clear. There is no pneumothorax. The bony thorax appears intact. Degenerative change is noted in the thoracic spine. IMPRESSION: No active disease in the chest. Electronically signed by: Jace Madison M.D. 03/16/2018 12:42 PM Dictated Date/Time: 03/16/2018 12:41 PM
== END | disposition home or self-care (01) ==
LOC: C.RAD1850 12:33
PROVIDERS: ATTEND Physician Assistant
DX: R05 Cough (principal)